=== PATIENT | male | born 1980 | race Two or more races ===

== ENCOUNTER 2021-06-20 11:42 | Inpatient (IN) | payer OTHER ==
[~2021-06-20] VITALS: Ht 175.3 cm; Wt 81.6 kg
[2021-06-20] MEDS ORDERED: ACETAMINOPHEN 325 MG TABLET PO PRN (16:00)
[2021-06-20] MEDS ORDERED: BLOOD SUGAR DIAGNOSTIC 1 EACH STRIP IN ONE (16:00)
[2021-06-20] MEDS ORDERED: ALBUTEROL NEB PRN (16:00)
[2021-06-20] MEDS ORDERED: LORAZEPAM 0.5 MG TABLET PO PRN (16:00)
[2021-06-20] MEDS ORDERED: MAG HYDROX/AL HYDROX/SIMETH 30 ML UDC PO PRN (16:00)
[2021-06-20] MEDS ORDERED: IBUPROFEN 200 MG TABLET PO PRN (16:00)
[2021-06-20] MEDS ORDERED: MAGNESIUM HYDROXIDE 30 ML UDC PO PRN ×2 (16:00)
[2021-06-20] MEDS ORDERED: ZOLPIDEM TARTRATE 10 MG TABLET PO PRN (16:00)
[2021-06-20] MEDS ORDERED: LORAZEPAM 1 MG TABLET FOR AGITATION/ANXIETY PO PRN (16:00)
--- NOTE | 2021-06-20 17:15 | NUR ---
Admitted a 41 years old female. Alert and oriented x3. Admitted for clinical trial @ 1450. Pt. is under the services of Dr. Baumann. Pt. arrived to the unit, ambulatory and escorted by Dr. Baumann's staff. Bed locked. bed on lowest position. bed alarm on. side rails up x2. Pt. denies suicidal and homicidal ideation at this time. Pt is calm and cooperative upon admission. V/S taken. All belongings in possession of patient. Pt. refused to sign the admissions papers co-signed with RN. Pt refused skin assessment. Pt refused face photograph. Pt denies auditory and visual hallucinations. Needs attended and will continue to monitor Q15 minutes for safety, comfort and behavior. Electric shaving kit removed from belongings and locked in pt's locker.
[2021-06-20 17:20] VITALS: BP 137/90
[2021-06-20 19:49] VITALS: BP 124/64
--- NOTE | 2021-06-20 20:46 | NUR ---
GPS RN OPENING NOTES: RECEIVED PATIENT IN BED, AWAKE, A/O X 3, FLAT AFFECT, CALM, PASSIVE, GUARDED, WITHDRAWN. DENIES SI, HI, A/V HALLUCINATIONS. DENIES PAIN AT THIS TIME. NO S/S OF DISTRESS NOTED. RESPIRATION EVEN AND UNLABORED WITH EQUAL RISE AND FALL OF THE CHEST, ON ROOM AIR. PATIENT IS ABLE TO MAKE HIS NEEDS KNOWN. OFFERED FLUID AND SNACKS TOLERATED. BED IN LOW LOCKED POSITION, SIDE RAILS UP X2 FOR SAFETY. WILL CONTINUE TO MONITOR Q15 MIN FOR SAFETY, MOOD AND BEHAVIOR.
[2021-06-21 08:00] VITALS: BP 146/93
[2021-06-21 08:56] LABS: CHOLESTEROL 157 mg/dL (<200); HDL CHOLESTEROL 64 mg/dL (40-60); LDL 81 mg/dL (0-99); TRIGLYCERIDES 55 mg/dL (30-150)
[2021-06-21 09:00] LABS: ALBUMIN 3.6 g/dL (3.4-5.0); BILIRUBIN,TOTAL 0.5 mg/dL (0.2-1.0); CALCIUM, SERUM 8.9 mg/dL (8.5-10.1); CREATININE 1.3 mg/dL (0.6-1.3); POTASSIUM 4.5 mmol/L (3.5-5.1); TOTAL PROTEIN, SERUM 7.3 g/dL (6.4-8.2)
[2021-06-21] MEDS: DEXILANT 60 MG PO SCH (09:00)
[2021-06-21] MEDS ORDERED: OXYBUTYNIN 5 MG PO SCH (09:00)
--- NOTE | 2021-06-21 09:00 | NUR ---
Patient alert ,verbally responsive ,easily irritable and anxious ,isolative and withdrawn ,no interaction with peers ,stay in his room all day ,no plan for self care .will continue to monitor for safety .
--- NOTE | 2021-06-21 13:00 | NUR ---
Patient remains isolative and withdrawn,preoccupied with his own thoughts no plan for self care ,no interaction with peers ,stay in his room all day ,no plan for self care .will continue to monitor for safety .
[2021-06-21 16:00] VITALS: BP 146/77
[2021-06-21] MEDS: MAG HYDROX/AL HYDROX/SIMETH 30 ML UDC PO PRN (19:51)
[2021-06-21] MEDS: ACETAMINOPHEN ES 500 MG TABLET PO PRN (19:56)
[2021-06-21 20:00] VITALS: BP 153/94
--- NOTE | 2021-06-21 20:04 | NUR ---
GPS RN OPENING NOTES: RECEIVED PATIENT IN ROOM, AWAKE, A/O X 3, FLAT AFFECT, ANXIOUS, RESTLESS, COMPLAINING OF HEADACHE AND NAUSEA. TYLENOL 1000MG AND MAALOX 30ML/1CUP GIVEN PO. PATIENT DENIES SI, HI, A/V HALLUCINATIONS AT THIS TIME. DENIES PAIN AT THIS TIME. NO S/S OF DISTRESS NOTED. RESPIRATION EVEN AND UNLABORED WITH EQUAL RISE AND FALL OF THE CHEST, ON ROOM AIR. PATIENT IS ABLE TO MAKE HIS NEEDS KNOWN. OFFERED FLUID AND SNACKS TOLERATED. BED IN LOW LOCKED POSITION, SIDE RAILS UP X2 FOR SAFETY. WILL CONTINUE TO MONITOR Q15 MIN FOR SAFETY, MOOD AND BEHAVIOR.
[2021-06-21] MEDS: ZOLPIDEM TARTRATE 10 MG TABLET PO PRN (21:55)
--- NOTE | 2021-06-21 21:59 | NUR ---
GPS RN NOTES: PATIENT REQUESTED FOR SLEEP MEDICATION. AMBIEN 10MG GIVEN PO AT 2155. WILL CONTINUE TO MONITOR.
--- NOTE | 2021-06-22 06:39 | NUR ---
GPS RN CLOSING NOTES: PATIENT IS CURRENTLY SLEEPING. PATIENT SLEPT 8HR THIS SHIFT. NO BEHAVIORAL ISSUES THIS SHIFT. NO S/S OF DISTRESS. RESPIRATION EVEN AND UNLABORED WITH EQUAL RISE AND FALL OF THE CHEST, ON ROOM AIR. NO C/O PAIN THIS SHIFT. ALL PATIENT CARE NEEDS HAVE BEEN MET ANTICIPATED. WILL ENDORSE TO AM SHIFT.
[2021-06-22 08:00] VITALS: BP 138/96
[2021-06-22] MEDS: DEXILANT 60 MG PO SCH (08:16)
--- NOTE | 2021-06-22 09:49 | NUR ---
RN-CO: PATIENT DENIED PAIN AND DISCOMFORTS AT THIS TIME. HE SAID HE HAS AH TELLING HIM"FUNNY WORDS." HE DENIED FEELING OF PARANOIA AND VH. I WILL CONTINUE TO MONITOR
[2021-06-22 16:00] VITALS: BP 130/85
--- NOTE | 2021-06-22 19:45 | NUR ---
GPS RN OPENING NOTES: RECEIVED PATIENT IN ROOM, AWAKE, A/O X 3, FLAT AFFECT, PASSIVE, WITHDRAWN, ISOLATIVE, NOT INTERACTING WITH PEERS. PATIENT DENIES SI, HI, A/V HALLUCINATIONS AT THIS TIME. DENIES PAIN AT THIS TIME. NO S/S OF DISTRESS NOTED. RESPIRATION EVEN AND UNLABORED WITH EQUAL RISE AND FALL OF THE CHEST, ON ROOM AIR. PATIENT IS ABLE TO MAKE HIS NEEDS KNOWN. OFFERED FLUID AND SNACKS TOLERATED. BED IN LOW LOCKED POSITION, SIDE RAILS UP X2 FOR SAFETY. WILL CONTINUE TO MONITOR Q15 MIN FOR SAFETY, MOOD AND BEHAVIOR.
[2021-06-22 20:36] VITALS: BP 139/95
--- NOTE | 2021-06-23 06:46 | NUR ---
GPS RN CLOSING NOTES: PATIENT IS LAYING IN BED, AWAKE, A/O X3. PATIENT SLEPT 7HR THIS SHIFT. NO BEHAVIORAL ISSUES THIS SHIFT. NO S/S OF DISTRESS. RESPIRATION EVEN AND UNLABORED WITH EQUAL RISE AND FALL OF THE CHEST, ON ROOM AIR. NO C/O PAIN THIS SHIFT. ALL PATIENT CARE NEEDS HAVE BEEN MET ANTICIPATED. WILL CONTINUE TO MONITOR AND ENDORSE TO AM SHIFT.
[2021-06-23 08:00] VITALS: BP 147/98
[2021-06-23] MEDS: DEXILANT 60 MG PO SCH (08:07)
[2021-06-23 16:09] VITALS: BP 131/83
--- NOTE | 2021-06-23 19:30 | NUR ---
GPS RN NOTE, RECEIVED PATIENT AWAKE AND IN BED, NO S/S OR COMPLAINTS OF PAIN AT THIS TIME. PATIENT IS DISPLAYING NO S/S OF APPARENT DISTRESS AT THIS TIME. PATIENT BREATHING IS UNLABORED WITH EQUAL RISE AND FALL OF THE CHEST. PATIENT IS ALERT AND ORIENTED X 3 ON ROOM AIR. PATIENT IS COMPLIANT WITH MEDICATIONS, ANXIOUS, LABILE, PARANOID, POLITE, EASILY IRRITABLE, MAKES NEEDS KNOWN, AND COOPERATIVE. PATIENT DENIES SUICIDAL AND HOMICIDAL IDEATIONS AT THIS TIME. PATIENT ASSISTED WITH TURNING AND REPOSITIONING Q2HR AND PRN FOR COMFORT AND CIRCULATION. PATIENT HAS NO NEEDS AT THIS TIME. PATIENT EDUCATED ON THE USE OF THE CALL LOMBARDI. PATIENT BED SIDE RAILS UP X 2 FOR SAFETY. PATIENT BED IS LOCKED, LOW, WITH BED ALARM ON. WILL CONTINUE TO MONITOR THIS PATIENT Q15 MINUTES WITH THE HELP OF STAFF TO MAINTAIN SAFETY.
[2021-06-24 08:00] VITALS: BP 134/82
[2021-06-24] MEDS: DEXILANT 60 MG PO SCH (08:04)
--- NOTE | 2021-06-24 10:30 | NUR ---
RN Notes: Received pt. awake in bed, responsive to staffs and suspicious. Ate 100% for breakfast, compliant on meds. Pt. isolates in room, encouraged to verbalize feelings and motivated to attend group activity. Needs attended, no distress and no agitation noted. Will continue to monitor for safety.
--- NOTE | 2021-06-24 11:18 | NUR ---
Pt. went to the nurses station and asking permission to go to [facility] for less than [address] Baumann's office and approved to go to [facility] and spoke to
--- NOTE | 2021-06-24 11:36 | NUR ---
Pt. is back form [facility].
[2021-06-24 16:00] VITALS: BP 136/91
[2021-06-24] MEDS: OXYBUTYNIN 5 MG PO PRN ×2 (18:06→19:39)
--- NOTE | 2021-06-24 19:30 | NUR ---
GPS RN NOTE, RECEIVED PATIENT AWAKE AND IN BED, PATIENT HAS A COMPLAINT OF URINARY DISCOMFORT. PATIENT IS TAKING MEDICATION FOR THIS DISCOMFORT. PATIENT IS DISPLAYING NO S/S OF APPARENT DISTRESS AT THIS TIME. PATIENT BREATHING IS UNLABORED WITH EQUAL RISE AND FALL OF THE CHEST. PATIENT IS ALERT AND ORIENTED X 3 ON ROOM AIR WITH A SPO2 97%. PATIENT IS COMPLIANT WITH MEDICATIONS, ANXIOUS, PARANOID, POLITE, EASILY IRRITABLE, MAKES NEEDS KNOWN, AND COOPERATIVE. PATIENT DENIES SUICIDAL AND HOMICIDAL IDEATIONS AT THIS TIME. PATIENT ASSISTED WITH TURNING AND REPOSITIONING Q2HR AND PRN FOR COMFORT AND CIRCULATION. PATIENT HAS NO NEEDS AT THIS TIME. PATIENT EDUCATED ON THE USE OF THE CALL LOMBARDI. PATIENT BED SIDE RAILS UP X 2 FOR SAFETY. PATIENT BED IS LOCKED, LOW, WITH BED ALARM ON. WILL CONTINUE TO MONITOR THIS PATIENT Q15 MINUTES WITH THE HELP OF STAFF TO MAINTAIN SAFETY.
--- NOTE | 2021-06-24 19:39 | NUR ---
GPS RN NOTE, PATIENT HAS A COMPLAINT OF URINARY DISCOMFORT AND IS REQUESTING OXYBUTYNIN AT THIS TIME. PATIENT VITAL SIGNS ARE STABLE. GAVE OXYBUTYNIN 5MG PO DAILY PRN ORDERED. WILL REASSESS PATIENT'S DISCOMFORT AND I WILL CONTINUE TO MONITOR THIS PATIENT WITH THE HELP OF STAFF.
[2021-06-24 20:00] VITALS: BP 149/93
[2021-06-25 08:00] VITALS: BP 145/99
[2021-06-25] MEDS: DEXILANT 60 MG PO SCH (08:10)
--- NOTE | 2021-06-25 09:30 | NUR ---
RN Notes: Received pt. awake in bed, responsive to staffs and suspicious. No distress and no agitation noted. Ate 100% for breakfast, compliant on meds. Pt. isolates in room, encouraged to verbalize feelings and motivated to socialize with peers. Needs attended and will continue to monitor for safety.
[2021-06-25 16:00] VITALS: BP 141/79
--- NOTE | 2021-06-25 19:30 | NUR ---
RN NOTES: PATIENT RESTING IN ROOM, AWAKE, A/O X 3, FLAT AFFECT, PASSIVE, WITHDRAWN, ISOLATIVE, EASILY AGITATED. PATIENT DENIES SI, HI, A/V HALLUCINATIONS AT THIS TIME. NO S/S OF DISTRESS NOTED. PATIENT IS ABLE TO MAKE HIS NEEDS KNOWN. OFFERED FLUID AND SNACKS TOLERATED. WILL CONTINUE TO MONITOR Q15 MIN FOR SAFETY AND BEHAVIOR.
[2021-06-25 19:50] VITALS: BP 131/96
--- NOTE | 2021-06-26 06:37 | NUR ---
RN NOTES: PATIENT IS CURRENTLY SLEEPING. PATIENT SLEPT 8HR THIS SHIFT. NO BEHAVIORAL ISSUES THIS SHIFT NOTED. NO S/S OF DISTRESS. ALL PATIENT CARE NEEDS HAVE BEEN MET ANTICIPATED. WILL ENDORSE TO AM SHIFT.
[2021-06-26] MEDS: DEXILANT 60 MG PO SCH (07:53)
[2021-06-26 08:00] VITALS: BP 139/76
[2021-06-26 16:00] VITALS: BP 134/73
[2021-06-26 19:50] VITALS: BP 154/86
[2021-06-26] MEDS: ZOLPIDEM TARTRATE 10 MG TABLET PO PRN ×2 (20:38→23:13)
[2021-06-27] MEDS: ACETAMINOPHEN ES 500 MG TABLET PO PRN (07:41)
[2021-06-27 08:00] VITALS: BP 137/84
[2021-06-27] MEDS: DEXILANT 60 MG PO SCH (09:24)
--- NOTE | 2021-06-27 10:00 | NUR ---
GPS RN OPENING NOTES: RECEIVED PATIENT IN ROOM, AWAKE, A/O X 3, FLAT AFFECT, PASSIVE, PATIENT STATES" I CANT STOP LAUGHING " PATIENT DENIES SI, HI, A/V HALLUCINATIONS AT THIS TIME. DENIES PAIN AT THIS TIME. NO S/S OF DISTRESS NOTED. RESPIRATION EVEN AND UNLABORED WITH EQUAL RISE AND FALL OF THE CHEST, ON ROOM AIR. PATIENT IS ABLE TO MAKE HIS NEEDS KNOWN. OFFERED FLUID AND SNACKS TOLERATED. BED IN LOW LOCKED POSITION, SIDE RAILS UP X2 FOR SAFETY. WILL CONTINUE TO MONITOR Q15 MIN FOR SAFETY, MOOD AND BEHAVIOR.
[2021-06-27 16:00] VITALS: BP 148/87
--- NOTE | 2021-06-27 16:04 | NUR ---
GPS RN NOTE: T.O. ORDER DR NANCY OROZCO OXYBUTYNIN 5 MG PO ORDER PLACED AND CARED OUT.
--- NOTE | 2021-06-27 19:57 | NUR ---
GPS RN OPENING NOTES: RECEIVED PATIENT IN ROOM, AWAKE, A/O X3, PASSIVE, ISOLATIVE, GUARDED. NOT INTERACTING WITH PEERS. PATIENT C/O OF OVERACTIVE BLADDER. EDUCATION PROVIDED. DENIES SI, HI, A/V HALLUCINATIONS. DENIES PAIN AT THIS TIME. NO S/S OF DISTRESS NOTED. RESPIRATION EVEN AND UNLABORED WITH EQUAL RISE AND FALL OF THE CHEST, ON ROOM AIR. BED IN LOW LOCKED POSITION, SIDE RAILS UP X2 FOR SAFETY. WILL CONTINUE TO MONITOR Q15 MIN FOR SAFETY, MOOD AND BEHAVIOR.
[2021-06-27 20:15] VITALS: BP 140/98
[2021-06-28] MEDS: DEXILANT 60 MG PO SCH (08:34)
--- NOTE | 2021-06-28 09:00 | NUR ---
Patient alert ,verbally responsive ,poor insight ,poor judgment ,flat affect ,labile ,stay in his room all day no interaction with peers ,encourage patient to verbalize feelings and thoughts ,redirect as needed encourage patient to attend groups and interact with peers, redirect as needed .
--- NOTE | 2021-06-28 19:40 | NUR ---
GPS RN OPENING NOTES: RECEIVED PATIENT IN ROOM, AWAKE, A/O X3, PASSIVE, ISOLATIVE, GUARDED, POOR INSIGHT. NOT INTERACTING WITH PEERS. ENCOURAGED TO VERBALIZE FEELINGS. DENIES SI, HI, A/V HALLUCINATIONS. DENIES PAIN AT THIS TIME. NO S/S OF DISTRESS NOTED. RESPIRATION EVEN AND UNLABORED WITH EQUAL RISE AND FALL OF THE CHEST, ON ROOM AIR. BED IN LOW LOCKED POSITION, SIDE RAILS UP X2 FOR SAFETY. WILL CONTINUE TO MONITOR Q15 MIN FOR SAFETY, MOOD AND BEHAVIOR.
[2021-06-28 20:00] VITALS: BP 124/85
--- NOTE | 2021-06-29 06:39 | NUR ---
GPS RN CLOSING NOTES: PATIENT IS CURRENTLY SLEEPING. PATIENT SLEPT 8HR THIS SHIFT. NO BEHAVIORAL ISSUES THIS SHIFT. NO S/S OF DISTRESS. RESPIRATION EVEN AND UNLABORED WITH EQUAL RISE AND FALL OF THE CHEST, ON ROOM AIR. NO C/O PAIN THIS SHIFT. ALL PATIENT CARE NEEDS HAVE BEEN MET ANTICIPATED. WILL CONTINUE TO MONITOR AND ENDORSE TO AM SHIFT.
[2021-06-29] MEDS: DEXILANT 60 MG PO SCH (08:20)
--- NOTE | 2021-06-29 09:11 | NUR ---
RN-CO: PATIENT IS CALM AND COOPERATIVE TO CARE. HE DENIES PAIN AND DISCOMFORTS. HE STATED HE HAS ON AND OFF AUDITORY HALLUCINATIONS TELLING HIM "FUNNY THINGS." HE WAS PICKED UP BY DR CRUZ'S NURSE AT THIS TIME.
--- NOTE | 2021-06-29 19:41 | NUR ---
RN NOTES: PATIENT RESTING IN HIS ROOM, AWAKE, A/O X3, ISOLATIVE, GUARDED, POOR INSIGHT. ENCOURAGED TO VERBALIZE FEELINGS. DENIES SI, HI, A/V HALLUCINATIONS. NO S/S OF DISTRESS NOTED. WILL CONTINUE TO MONITOR Q15 MIN FOR SAFETY AND BEHAVIOR.
[2021-06-29 20:00] VITALS: BP 124/84
[2021-06-30 08:00] VITALS: BP 139/89
[2021-06-30] MEDS: DEXILANT 60 MG PO SCH (08:01)
--- NOTE | 2021-06-30 09:07 | NUR ---
RN-CO: RECEIVED PT AWAKE, LISTENING TO MUSIC. HE ATE IS MEAL AND TOOK HIS MEDICATIONS. HE DENIED ANY ADVERSE REACTIONS FROM THE INVESTIGATIONAL MEDICATIONS.HE STILL HAS AUDITORY HALLUCINATIONS. PT IS CALM AND COOPERATIVE TO CARE.
[2021-06-30] MEDS: INVEST MED Kar XT OR PLACEBO 50/20 MG PO SCH ×2 (09:50→21:11)
[2021-06-30] MEDS ORDERED: LORAZEPAM 1 MG TABLET FOR AGITATION/ANXIETY PO PRN (13:00)
[2021-06-30 16:00] VITALS: BP 137/92
--- NOTE | 2021-06-30 19:30 | NUR ---
GPS RN NOTE, RECEIVED PATIENT AWAKE AND IN BED, NO S/S OR COMPLAINTS OF PAIN AT THIS TIME. PATIENT IS TAKING MEDICATION FOR THIS DISCOMFORT. PATIENT IS DISPLAYING NO S/S OF APPARENT DISTRESS AT THIS TIME. PATIENT BREATHING IS UNLABORED WITH EQUAL RISE AND FALL OF THE CHEST. PATIENT IS ALERT AND ORIENTED X 3 ON ROOM AIR WITH A SPO2 99%. PATIENT IS COMPLIANT WITH MEDICATIONS, ANXIOUS, PARANOID, POLITE, EASILY IRRITABLE, MAKES NEEDS KNOWN, AND COOPERATIVE. PATIENT DENIES SUICIDAL AND HOMICIDAL IDEATIONS AT THIS TIME. PATIENT ASSISTED WITH TURNING AND REPOSITIONING Q2HR AND PRN FOR COMFORT AND CIRCULATION. PATIENT HAS NO NEEDS AT THIS TIME. PATIENT EDUCATED ON THE USE OF THE CALL LOMBARDI. PATIENT BED SIDE RAILS UP X 2 FOR SAFETY. PATIENT BED IS LOCKED, LOW, WITH BED ALARM ON. WILL CONTINUE TO MONITOR THIS PATIENT Q15 MINUTES WITH THE HELP OF STAFF TO MAINTAIN SAFETY.
[2021-06-30 20:00] VITALS: BP 132/84
[2021-07-01 08:00] VITALS: BP 148/86
[2021-07-01] MEDS: DEXILANT 60 MG PO SCH (08:09)
[2021-07-01] MEDS: INVEST MED Kar XT OR PLACEBO 50/20 MG PO SCH ×2 (09:58→21:46)
--- NOTE | 2021-07-01 10:30 | NUR ---
RN Notes: Received pt. awake in bed, responsive to staffs, no distress and no agitation noed. Ate 100% for breakfast, compliant on med. Encouraged to verbalize feelings and motivated to attend group activity. Needs attended and will continue to monitor for safety.
[2021-07-01 16:00] VITALS: BP 134/76
[2021-07-01 21:10] VITALS: BP 130/78
[2021-07-01] MEDS: ZOLPIDEM TARTRATE 10 MG TABLET PO PRN (21:45)
--- NOTE | 2021-07-01 21:46 | NUR ---
GPS RN NOTE, PATIENT HAS A COMPLAINT OF NOT BEING ABLE TO SLEEP AND IS REQUESTING AMBIEN AT THIS TIME. PATIENT VITAL SIGNS ARE STABLE. GAVE AMBIEN 10MG PO HS PRN ORDERED. WILL REASSESS FOR INSOMNIA AND I WILL CONTINUE TO MONITOR THIS PATIENT WITH THE HELP OF STAFF.
[2021-07-02] MEDS: DEXILANT 60 MG PO SCH (07:46)
[2021-07-02] MEDS: INVEST MED Kar XT OR PLACEBO 50/20 MG PO SCH ×2 (10:02→21:39)
--- NOTE | 2021-07-02 19:30 | NUR ---
GPS RN NOTE, RECEIVED PATIENT AWAKE AND IN BED, NO S/S OR COMPLAINTS OF PAIN AT THIS TIME. PATIENT IS TAKING MEDICATION FOR THIS DISCOMFORT. PATIENT IS DISPLAYING NO S/S OF APPARENT DISTRESS AT THIS TIME. PATIENT BREATHING IS UNLABORED WITH EQUAL RISE AND FALL OF THE CHEST. PATIENT IS ALERT AND ORIENTED X 3 ON ROOM AIR WITH A SPO2 99%. PATIENT IS COMPLIANT WITH MEDICATIONS, ANXIOUS, PARANOID, POLITE, EASILY IRRITABLE, MAKES NEEDS KNOWN, AND COOPERATIVE. PATIENT STATES, " I HEAR VOICES AT TIMES BUT IT'S MOSTLY COMEDIC LAUGHTER AND I TRY TO BLOCK IT OUT ". PATIENT DENIES SUICIDAL AND HOMICIDAL IDEATIONS AT THIS TIME. PATIENT ASSISTED WITH TURNING AND REPOSITIONING Q2HR AND PRN FOR COMFORT AND CIRCULATION. PATIENT HAS NO NEEDS AT THIS TIME. PATIENT EDUCATED ON THE USE OF THE CALL LOMBARDI. PATIENT BED SIDE RAILS UP X 2 FOR SAFETY. PATIENT BED IS LOCKED, LOW, WITH BED ALARM ON. WILL CONTINUE TO MONITOR THIS PATIENT Q15 MINUTES WITH THE HELP OF STAFF TO MAINTAIN SAFETY.
[2021-07-02 20:00] VITALS: BP 146/104
[2021-07-02] MEDS: ZOLPIDEM TARTRATE 10 MG TABLET PO PRN (21:40)
[2021-07-03 08:00] VITALS: BP 129/82
[2021-07-03] MEDS: DEXILANT 60 MG PO SCH (08:31)
[2021-07-03] MEDS: INVEST MED Kar XT OR PLACEBO 50/20 MG PO SCH ×2 (10:31→21:19)
[2021-07-03 16:00] VITALS: BP 130/79
[2021-07-03 20:13] VITALS: BP 142/93
[2021-07-04 08:00] VITALS: BP 147/88
--- NOTE | 2021-07-04 09:00 | NUR ---
Patient alert ,verbally responsive, responding to internal stimuli ,stated hearing voices of someone make him laugh ,easily irritable and anxious isolative and withdrawn ,no interaction with peers ,stay in his room all day ,no plan for self care .will continue to monitor for safety .
[2021-07-04] MEDS: INVEST MED Kar XT OR PLACEBO 50/20 MG PO SCH ×2 (09:25→21:31)
[2021-07-04] MEDS: DEXILANT 60 MG PO SCH (09:25)
[2021-07-04 16:00] VITALS: BP 147/96
--- NOTE | 2021-07-04 19:51 | NUR ---
GPS RN OPENING NOTES: RECEIVED PATIENT IN ROOM SLEEPING, EASILY AROUSABLE, PASSIVE, ISOLATIVE, GUARDED. PATIENT ENCOURAGED TO VERBALIZE FEELINGS, AND ADMITS TO AUDITORY HALLUCINATIONS, "FUNNY VOICES NOTHING BAD". DENIES SI, HI AT THIS TIME. DENIES PAIN AT THIS TIME. NO S/S OF DISTRESS NOTED. RESPIRATION EVEN AND UNLABORED WITH EQUAL RISE AND FALL OF THE CHEST, ON ROOM AIR. BED IN LOW LOCKED POSITION, SIDE RAILS UP X2 FOR SAFETY. WILL CONTINUE TO MONITOR Q15 MIN FOR SAFETY, MOOD AND BEHAVIOR.
[2021-07-04 20:19] VITALS: BP 156/95
--- NOTE | 2021-07-05 06:51 | NUR ---
GPS RN CLOSING NOTES: PATIENT IS CURRENTLY SLEEPING. PATIENT SLEPT 8HR THIS SHIFT. NO C/O PAIN THIS SHIFT. NO BEHAVIORAL ISSUES THIS SHIFT. NO S/S OF DISTRESS. RESPIRATION EVEN AND UNLABORED WITH EQUAL RISE AND FALL OF THE CHEST, ON ROOM AIR. ALL PATIENT CARE NEEDS HAVE BEEN MET ANTICIPATED. WILL CONTINUE TO MONITOR AND ENDORSE TO AM SHIFT.
--- NOTE | 2021-07-05 09:00 | NUR ---
Patient alert ,verbally responsive, responding to internal stimuli,patient hearing voices ,easily irritable and anxious isolative and withdrawn ,no interaction with peers ,stay in his room all day ,no plan for self care will continue to monitor for safety .
[2021-07-05] MEDS: DEXILANT 60 MG PO SCH (09:10)
[2021-07-05] MEDS: INVEST MED Kar XT OR PLACEBO 50/20 MG PO SCH ×2 (09:14→21:59)
--- NOTE | 2021-07-05 13:00 | NUR ---
Patient remains isolative and withdrawn .Patient labile.Patient stay in his room all day .Continue to monitor for safety q15 minutes Encourage patient to verbalize feelings and thoughts redirect as needed.
--- NOTE | 2021-07-05 19:30 | NUR ---
RN NOTES: PATIENT RESTING IN HIS ROOM, AWAKE, A/O X3, ISOLATIVE, GUARDED, POOR INSIGHT. ENCOURAGED TO VERBALIZE FEELINGS. DENIES SI, HI, A/V HALLUCINATIONS AT THIS TIME. NO S/S OF DISTRESS NOTED. WILL CONTINUE TO MONITOR Q15 MIN FOR SAFETY AND BEHAVIOR.
[2021-07-05 20:17] VITALS: BP 149/91
[2021-07-05 22:00] VITALS: BP 125/80
[2021-07-06 08:00] VITALS: BP 155/93
[2021-07-06] MEDS: DEXILANT 60 MG PO SCH (08:16)
[2021-07-06] MEDS: INVEST MED Kar XT OR PLACEBO 50/20 MG PO SCH ×2 (10:05→21:22)
--- NOTE | 2021-07-06 14:18 | NUR ---
RN-CO:.PATIENT DENIES ADVERSE REACTIONS FROM THE IP. BUT STATED " I STILL HAVE AUDITORY AND VISUAL HALLUCINATIONS AND MILD PARANOIA. HE ALSO DENIED SIDE EFFECTS. HE IS COOPERATIVE TO CARE BUT ISOLATIVE AND WITHDRAWN. HE PREFERS TO LISTEN TO MUSIC AND TALK TO HIS FRIENDS ON THE PHONE.
[2021-07-06 16:00] VITALS: BP 140/98
--- NOTE | 2021-07-06 19:30 | NUR ---
GPS RN NOTE, RECEIVED PATIENT AWAKE AND IN BED, PATIENT HAS A COMPLAINT OF MIDDLE BACK AT 3 OUT OF 10 ON THE PAIN SCALE. PATIENT IS TAKING ORAL PAIN MEDICATION FOR THIS PAIN. PATIENT IS DISPLAYING NO S/S OF APPARENT DISTRESS AT THIS TIME. PATIENT BREATHING IS UNLABORED WITH EQUAL RISE AND FALL OF THE CHEST. PATIENT IS ALERT AND ORIENTED X 3 ON ROOM AIR WITH A SPO2 99%. PATIENT IS COMPLIANT WITH MEDICATIONS, ANXIOUS, PARANOID, POLITE, EASILY IRRITABLE, MAKES NEEDS KNOWN, AND COOPERATIVE. PATIENT DENIES SUICIDAL AND HOMICIDAL IDEATIONS AT THIS TIME. PATIENT ASSISTED WITH TURNING AND REPOSITIONING Q2HR AND PRN FOR COMFORT AND CIRCULATION. PATIENT HAS NO NEEDS AT THIS TIME. PATIENT EDUCATED ON THE USE OF THE CALL LOMBARDI. PATIENT BED SIDE RAILS UP X 2 FOR SAFETY. PATIENT BED IS LOCKED, LOW, WITH BED ALARM ON. WILL CONTINUE TO MONITOR THIS PATIENT Q15 MINUTES WITH THE HELP OF STAFF TO MAINTAIN SAFETY.
[2021-07-06 20:00] VITALS: BP 138/62
[2021-07-06] MEDS: ACETAMINOPHEN ES 500 MG TABLET PO PRN (20:03)
--- NOTE | 2021-07-06 20:03 | NUR ---
GPS RN NOTE, PATIENT HAS A COMPLAINT OF UPPER BACK PAIN AT 3 OUT OF 10 ON THE PAIN SCALE AND IS REQUESTING TYLENOL ES AT THIS TIME. PATIENT VITAL SIGNS ARE STABLE. GAVE TYLENOL 1,000 MG PO Q8HR PRN ORDERED. WILL REASSESS PAIN AND I WILL CONTINUE TO MONITOR THIS PATIENT WITH THE HELP OF STAFF.
[2021-07-07 08:00] VITALS: BP 125/78
[2021-07-07] MEDS: DEXILANT 60 MG PO SCH (08:14)
--- NOTE | 2021-07-07 09:58 | NUR ---
RN Notes: Received pt. awake in bed, responsive to staffs and suspicious. Ate 100% for breakfast, compliant on meds. Encouraged to verbalize feelings and motivated to attend group activity. Needs attended and will continue to monitor for safety.
[2021-07-07] MEDS: INVEST MED Kar XT OR PLACEBO 50/20 MG PO SCH ×2 (10:02→21:19)
--- NOTE | 2021-07-07 10:06 | NUR ---
Pt.went to the doctor's office and escorted by 's staff.Pt. without distress and ambulatory.
[2021-07-07 16:00] VITALS: BP 132/95
[2021-07-07 20:00] VITALS: BP 129/92
[2021-07-08 08:00] VITALS: BP 134/85
[2021-07-08] MEDS: DEXILANT 60 MG PO SCH (08:04)
--- NOTE | 2021-07-08 09:30 | NUR ---
RN Notes: Received pt. awake in bed, responsive to staffs and suspicious. Ate 100% for breakfast, compliant on meds. Pt. isolates in room, no social interactions. Encouraged to verbalize feelings and motivated to attend group activity. Needs attended and will continue to monitor for safety.
[2021-07-08] MEDS: INVEST MED Kar XT OR PLACEBO 50/20 MG PO SCH ×2 (10:01→21:20)
[2021-07-08 16:00] VITALS: BP 145/93
--- NOTE | 2021-07-08 19:25 | NUR ---
GPS RN NOTES RECEIVED PATIENT IN HIS ROOM AWAKE, ALERT AND ORIENTED X3, PATIENT IS LISTENING TO MUSIC. NO ACUTE DISTRESS NO SOB NOTED. PATIENT REMAINS ISOLATIVE AND WITHDRAWN. ENCOURAGED PATIENT TO ATTEND IN GROUP ACTIVITIES. PATIENT VERBALIZED UNDERSTANDING. PATIENT DENIES ADVERSE REACTIONS FROM THE INVESTIGATIONAL MEDICATION. HOWEVER PATIENT STATED "I STILL HAVE ON AND OFF AUDITORY HALLUCINATIONS TELLING HIM "FUNNY THINGS". DENIES SI/HI AT THIS TIME. SAFETY PRECAUTIONS MAINTAINED. WILL CONTINUE TO MONITOR Q15MIN ROUNDS FOR SAFETY AND BEHAVIOR.
[2021-07-08 19:51] VITALS: BP 137/91
[2021-07-08] MEDS: MAG HYDROX/AL HYDROX/SIMETH 30 ML UDC PO PRN (20:39)
[2021-07-09 08:00] VITALS: BP 142/91
[2021-07-09] MEDS: DEXILANT 60 MG PO SCH (08:25)
[2021-07-09] MEDS: INVEST MED Kar XT OR PLACEBO 50/20 MG PO SCH ×2 (09:59→21:07)
[2021-07-09 16:00] VITALS: BP 144/93
--- NOTE | 2021-07-09 19:26 | NUR ---
GPS RN NOTES RECEIVED PATIENT IN HIS ROOM AWAKE, ALERT AND ORIENTED X3, PATIENT IS LISTENING TO MUSIC. NO ACUTE DISTRESS NO SOB NOTED. PATIENT REMAINS ISOLATIVE AND WITHDRAWN. PATIENT DENIES ADVERSE REACTIONS FROM THE INVESTIGATIONAL MEDICATION. HOWEVER PATIENT STATED "I STILL HAVE ON AND OFF AUDITORY HALLUCINATIONS TELLING HIM "FUNNY WORDS". DENIES SI/HI AT THIS TIME. SAFETY PRECAUTIONS MAINTAINED. WILL CONTINUE TO MONITOR Q15MIN ROUNDS FOR SAFETY AND BEHAVIOR.
[2021-07-09 19:57] VITALS: BP 145/91
[2021-07-10 08:00] VITALS: BP 139/96
[2021-07-10] MEDS: DEXILANT 60 MG PO SCH (08:30)
[2021-07-10] MEDS: INVEST MED Kar XT OR PLACEBO 50/20 MG PO SCH ×2 (09:57→21:19)
[2021-07-10 16:00] VITALS: BP 131/90
--- NOTE | 2021-07-10 19:26 | NUR ---
GPS RN NOTES RECEIVED PATIENT IN HIS ROOM AWAKE, ALERT AND ORIENTED X3, PATIENT IS LISTENING TO MUSIC. NO ACUTE DISTRESS NO SOB NOTED. PATIENT REMAINS ISOLATIVE AND WITHDRAWN. PATIENT DENIES ADVERSE REACTIONS FROM THE INVESTIGATIONAL MEDICATION. PATIENT STILL HEARING VOICES. PT STATED, "VOICES ARE TELLING HIM TO STOP THINKING, AND VOICES ARE TELLING HIM TO TELL JOKES". PATIENT HAVING VISUAL HALLUCINATION PATIENT STATED, "I AM SEEING STRANGERS LIVE THEIR LIVES IN [place] IN MY HEAD". DENIES SI/HI AT THIS TIME. SAFETY PRECAUTIONS MAINTAINED. WILL CONTINUE TO MONITOR Q15MIN ROUNDS FOR SAFETY AND BEHAVIOR.
[2021-07-10 19:58] VITALS: BP 140/99
--- NOTE | 2021-07-11 09:00 | NUR ---
Patient alert ,disorganized thoughts ,poor insight ,poor judgment isolative and withdrawn, ,hearing voices ,laughing inappropriately to himself responding to internal stimuli. Refused to attend groups Continue to monitor for safety q15 minutes encourage patient to verbalize feelings and thoughts .
[2021-07-11] MEDS: DEXILANT 60 MG PO SCH (09:12)
[2021-07-11] MEDS: INVEST MED Kar XT OR PLACEBO 50/20 MG PO SCH ×2 (09:12→21:04)
--- NOTE | 2021-07-11 13:00 | NUR ---
Patient remains isolative and withdrawn .Patient stay in his room all day labile ,easily irritable and anxious .Encourage patient to verbalize feelings and thoughts ,redirect as needed.
[2021-07-11 19:47] VITALS: BP 158/91
--- NOTE | 2021-07-12 09:00 | NUR ---
Patient alert ,verbally responsive ,poor insight ,poor judgment ,isolative and withdrawn, no interaction with peers .Patient c/o hearing different things . Refused to attend groups. Continue to monitor for safety q15 minutes encourage patient to verbalize feelings and thoughts redirect as needed.
[2021-07-12] MEDS: INVEST MED Kar XT OR PLACEBO 50/20 MG PO SCH ×3 (09:01→22:09)
[2021-07-12] MEDS: DEXILANT 60 MG PO SCH (09:02)
--- NOTE | 2021-07-12 13:00 | NUR ---
Patient remains isolative and withdrawn ,flat affect ,preoccupied with his own thoughts ,laughing and talking to himself Patient stay in his room all day Continue to monitor for safety q15 minutes .Encourage patient to verbalize feelings and thoughts redirect as needed.
[2021-07-12 20:00] VITALS: BP 143/88
[2021-07-13 08:00] VITALS: BP 113/67
[2021-07-13] MEDS: DEXILANT 60 MG PO SCH (08:05)
[2021-07-13] MEDS: INVEST MED Kar XT OR PLACEBO 50/20 MG PO SCH ×2 (10:40→21:47)
[2021-07-13 16:00] VITALS: BP 139/95
--- NOTE | 2021-07-13 17:32 | NUR ---
RN-CO: Today he was picked up by Dr Baumann's staff to be examined by . He came back around 1100 am.
--- NOTE | 2021-07-13 17:36 | NUR ---
RN-CO: Patient remains cooperative to care. Denied adverse reaction from the investigational medicine. He is isolative and withdrawn, mostly he listens to music inside his room. He said that he still has AH/VH but it doesn't bother him. We will continue to monitor.
[2021-07-13 20:00] VITALS: BP 134/90
[2021-07-14 08:00] VITALS: BP 149/88
[2021-07-14] MEDS: DEXILANT 60 MG PO SCH (08:50)
--- NOTE | 2021-07-14 09:23 | NUR ---
RN Notes: Received pt. awake in bed, responsive to staffs, no distress and no agitation noted. Ate 100% for breakfast, compliant on meds. Encouraged to verbalize feelings and motivated to attend group activity. Needs attended and will continue to monitor for safety.
[2021-07-14] MEDS: INVEST MED Kar XT OR PLACEBO 50/20 MG PO SCH ×2 (10:07→21:30)
[2021-07-14] MEDS ORDERED: LORAZEPAM 1 MG TABLET FOR AGITATION/ANXIETY PO PRN (13:00)
[2021-07-14 16:00] VITALS: BP 136/93
[2021-07-14 20:00] VITALS: BP 151/97
[2021-07-15 08:00] VITALS: BP 139/91
[2021-07-15] MEDS: DEXILANT 60 MG PO SCH (09:00)
[2021-07-15] MEDS: INVEST MED Kar XT OR PLACEBO 50/20 MG PO SCH ×2 (10:03→21:33)
--- NOTE | 2021-07-15 10:15 | NUR ---
RN Notes: Received pt. awake in bed, responsive to staffs, no distress and no agitation noted. Ate 100% for breakfast, Dexilant not available per staff from the office of Dr. Baumann they will get it from the Pharmacy today. Needs attended and will continue to monitor for safety.
[2021-07-15 16:00] VITALS: BP 134/95
--- NOTE | 2021-07-15 19:35 | NUR ---
GPS RN OPENING NOTE RECEIVED PATIENT IN HIS ROOM AWAKE, ALERT AND ORIENTED X3, PT IS LISTENING TO MUSIC USING HIS HEADPHONES. NO ACUTE DISTRESS NO SOB NOTED. PATIENT REMAINS ISOLATIVE AND WITHDRAWN. PATIENT DENIES ADVERSE REACTIONS FROM THE INVESTIGATIONAL MEDICATION. PATIENT STILL HEARING VOICES. PT STATED, "VOICES ARE TELLING HIM TO STOP THINKING, DENIES SI/HI AT THIS TIME. SAFETY PRECAUTIONS MAINTAINED. ALL NEEDS MET AT THIS TIME. WILL CONTINUE TO MONITOR Q15MIN ROUNDS FOR SAFETY AND BEHAVIOR.
[2021-07-15 19:55] VITALS: BP 125/86
[2021-07-15 20:03] VITALS: BP 125/86
[2021-07-16 08:00] VITALS: BP 144/83
[2021-07-16] MEDS: DEXILANT 60 MG PO SCH (08:00)
[2021-07-16] MEDS: INVEST MED Kar XT OR PLACEBO 50/20 MG PO SCH ×2 (10:00→22:06)
[2021-07-16 16:00] VITALS: BP 152/88
[2021-07-17 08:00] VITALS: BP 146/93
[2021-07-17] MEDS: DEXILANT 60 MG PO SCH (09:26)
[2021-07-17] MEDS: INVEST MED Kar XT OR PLACEBO 50/20 MG PO SCH ×2 (10:00→21:27)
[2021-07-17 16:00] VITALS: BP 134/97
[2021-07-17 20:19] VITALS: BP 127/90
[2021-07-18] MEDS: DEXILANT 60 MG PO SCH (09:08)
[2021-07-18] MEDS: INVEST MED Kar XT OR PLACEBO 50/20 MG PO SCH ×2 (09:08→22:02)
--- NOTE | 2021-07-18 19:30 | NUR ---
GPS RN OPENING NOTE: RECEIVED PATIENT IN HIS ROOM AWAKE, ALERT AND ORIENTED X3, CALM, COOPERATIVE. NO ACUTE DISTRESS NO SOB NOTED. PATIENT REMAINS ISOLATIVE AND WITHDRAWN. PATIENT DENIES ADVERSE REACTIONS FROM THE INVESTIGATIONAL MEDICATION. PATIENT VERBALIZES HEARING VOICES. DENIES SI/HI AT THIS TIME. AMBULATORY/STEADY. SAFETY PRECAUTIONS MAINTAINED. WILL CONTINUE TO MONITOR Q15MIN ROUNDS FOR SAFETY AND BEHAVIOR.
[2021-07-18 20:00] VITALS: BP 139/85
[2021-07-19] MEDS: DEXILANT 60 MG PO SCH (08:53)
--- NOTE | 2021-07-19 09:00 | NUR ---
Patient alert,verbally responsive ,disorganized thoughts ,pt hearing voices .Refused to attend groups, Continue to monitor for safety q15 minutes encourage patient to verbalize feelings and thoughts redirect as needed.
[2021-07-19] MEDS: INVEST MED Kar XT OR PLACEBO 50/20 MG PO SCH ×2 (09:19→22:02)
--- NOTE | 2021-07-19 13:00 | NUR ---
Patient isolative and withdrawn .Flat affect, disorganized thoughts.Continue to monitor for safety q15 minutes .Encourage patient to verbalize feelings and thoughts ,redirect as needed.
--- NOTE | 2021-07-19 18:11 | NUR ---
late entry for 07/18/21 0900 Patient alert,verbally responsive ,disorganized thoughts ,isolative and withdrawn, patient med compliant ,stay in his room , pt hearing voices talking to him things . Continue to monitor for Safety q15 minutes encourage patient to verbalize feelings and thoughts ,redirect as needed.
--- NOTE | 2021-07-19 18:13 | NUR ---
late entry for 07/18/21 1300 Patient isolative and withdrawn .Flat affect, disorganized thoughts.Continue to monitor for safety q15 minutes .Encourage patient to verbalize feelings and thoughts ,redirect as needed.
[2021-07-19 20:00] VITALS: BP 119/91
--- NOTE | 2021-07-19 20:42 | NUR ---
GPS RN OPENING NOTES: RECEIVED PATIENT IN BED AWAKE, A/O X3, ANXIOUS, PASSIVE, WITHDRAWN, ISOLATIVE, COOPERATIVE. PATIENT CONTINUES TO ADMITS TO AUDITORY/VISUAL HALLUCINATIONS. EDUCATION PROVIDED AND PATIENT REORIENTED TO PRESENT SITUATION. PATIENT DENIES SI, HI AND PAIN AT THIS TIME. NO S/S OF DISTRESS NOTED. RESPIRATION EVEN AND UNLABORED WITH EQUAL RISE AND FALL OF THE CHEST, ON ROOM AIR. OFFERED FLUID AND SNACKS TOLERATED. BED IN LOW LOCKED POSITION, SIDE RAILS UP X2 FOR SAFETY. WILL CONTINUE TO MONITOR Q15 MIN FOR SAFETY, MOOD AND BEHAVIOR.
--- NOTE | 2021-07-20 07:00 | NUR ---
GPS RN CLOSING NOTES: PATIENT IS CURRENTLY SLEEPING COMFORTABLY IN BED. PATIENT SLEPT 8HR THIS SHIFT. NO C/O PAIN THIS SHIFT. NO BEHAVIORAL ISSUES THIS SHIFT. NO PRN'S THIS SHIFT. NO S/S OF DISTRESS. RESPIRATION EVEN AND UNLABORED WITH EQUAL RISE AND FALL OF THE CHEST, ON ROOM AIR. ALL PATIENT CARE NEEDS HAVE BEEN MET ANTICIPATED. WILL CONTINUE TO MONITOR AND ENDORSE TO AM SHIFT.
[2021-07-20 08:00] VITALS: BP 153/96
[2021-07-20] MEDS: DEXILANT 60 MG PO SCH (08:42)
--- NOTE | 2021-07-20 09:15 | NUR ---
RN-CO: PT WENT TO DR CRUZ'S OFFICE.
--- NOTE | 2021-07-20 09:40 | NUR ---
RN-CO: PT IS COOPERATIVE TO CARE, MOTIVATED TO SELFCARE. HE STATED THAT HE STILL HAS AH/VH BUT DENIED COMMAND HALLUCINATION. HIS AFFECT IS APPROPRIATE. HE DENIED PAIN AND DISCOMFORTS. I WILL CONTINUE TO MONITOR.
[2021-07-20] MEDS: INVEST MED Kar XT OR PLACEBO 50/20 MG PO SCH ×3 (10:04→20:38)
--- NOTE | 2021-07-20 11:13 | NUR ---
OTTOCO: PT IS BACK FROM DR CRUZ'S OFFICCE.
[2021-07-20] MEDS: ACETAMINOPHEN ES 500 MG TABLET PO PRN (12:23)
--- NOTE | 2021-07-20 12:27 | NUR ---
RN-CO: PT WILL GO PAY HIS RENT ANYTIME NOW IN [place]. HE STATED , " DR CRUZ'S OFFICE WAS INFORMED BY HIM.
[2021-07-20 16:00] VITALS: BP 148/95
--- NOTE | 2021-07-20 17:00 | NUR ---
RN-CO: PT IS BACK IN THE UNIT AT 1700.
[2021-07-20 20:00] VITALS: BP 145/93
[2021-07-21 08:00] VITALS: BP 139/89
[2021-07-21] MEDS: DEXILANT 60 MG PO SCH (08:01)
[2021-07-21] MEDS: INVEST MED Kar XT OR PLACEBO 50/20 MG PO SCH ×2 (09:53→21:58)
[2021-07-21 16:00] VITALS: BP 137/76
--- NOTE | 2021-07-21 19:30 | NUR ---
GPS RN NOTE, RECEIVED PATIENT AWAKE AND IN BED, NO S/S OR COMPLAINTS OF PAIN AT THIS TIME. PATIENT IS TAKING MEDICATION FOR THIS DISCOMFORT. PATIENT IS DISPLAYING NO S/S OF APPARENT DISTRESS AT THIS TIME. PATIENT BREATHING IS UNLABORED WITH EQUAL RISE AND FALL OF THE CHEST. PATIENT IS ALERT AND ORIENTED X 3 ON ROOM AIR WITH A SPO2 95%. PATIENT IS COMPLIANT WITH MEDICATIONS, ANXIOUS, PARANOID, POLITE, EASILY IRRITABLE, MAKES NEEDS KNOWN, AND COOPERATIVE. PATIENT DENIES SUICIDAL AND HOMICIDAL IDEATIONS AT THIS TIME. PATIENT ASSISTED WITH TURNING AND REPOSITIONING Q2HR AND PRN FOR COMFORT AND CIRCULATION. PATIENT HAS NO NEEDS AT THIS TIME. PATIENT EDUCATED ON THE USE OF THE CALL LOMBARDI. PATIENT BED SIDE RAILS UP X 2 FOR SAFETY. PATIENT BED IS LOCKED, LOW, WITH BED ALARM ON. WILL CONTINUE TO MONITOR THIS PATIENT Q15 MINUTES WITH THE HELP OF STAFF TO MAINTAIN SAFETY.
[2021-07-21 20:00] VITALS: BP 133/93
[2021-07-21] MEDS: ZOLPIDEM TARTRATE 10 MG TABLET PO PRN (21:59)
[2021-07-22 08:00] VITALS: BP 143/93
[2021-07-22] MEDS: DEXILANT 60 MG PO SCH (08:46)
[2021-07-22] MEDS: INVEST MED Kar XT OR PLACEBO 50/20 MG PO SCH ×2 (09:55→21:58)
--- NOTE | 2021-07-22 10:30 | NUR ---
RN Notes: Received pt. awake in bed, no distress and no agitation noted. Ate 100% for breakfast, compliant on meds. Pt. went for smoking. Encouraged to verbalize feelings, motivated to attend group activity and encouraged to take shower. Needs attended and will continue to monitor for safety.
[2021-07-22 16:00] VITALS: BP 127/66
--- NOTE | 2021-07-22 19:30 | NUR ---
GPS RN NOTE, RECEIVED PATIENT AWAKE AND IN BED, NO S/S OR COMPLAINTS OF PAIN AT THIS TIME. PATIENT IS TAKING MEDICATION FOR THIS DISCOMFORT. PATIENT IS DISPLAYING NO S/S OF APPARENT DISTRESS AT THIS TIME. PATIENT BREATHING IS UNLABORED WITH EQUAL RISE AND FALL OF THE CHEST. PATIENT IS ALERT AND ORIENTED X 3 ON ROOM AIR WITH A SPO2 99%. PATIENT IS COMPLIANT WITH MEDICATIONS, ANXIOUS, PARANOID, POLITE, EASILY IRRITABLE, MAKES NEEDS KNOWN, AND COOPERATIVE. PATIENT WOULD LIKE A ROOM CHANGE WHEN AVAILABLE. PATIENT DENIES SUICIDAL AND HOMICIDAL IDEATIONS AT THIS TIME. PATIENT ASSISTED WITH TURNING AND REPOSITIONING Q2HR AND PRN FOR COMFORT AND CIRCULATION. PATIENT HAS NO NEEDS AT THIS TIME. PATIENT EDUCATED ON THE USE OF THE CALL LOMBARDI. PATIENT BED SIDE RAILS UP X 2 FOR SAFETY. PATIENT BED IS LOCKED, LOW, WITH BED ALARM ON. WILL CONTINUE TO MONITOR THIS PATIENT Q15 MINUTES WITH THE HELP OF STAFF TO MAINTAIN SAFETY.
[2021-07-22 20:52] VITALS: BP 142/92
[2021-07-22] MEDS: ZOLPIDEM TARTRATE 10 MG TABLET PO PRN (21:59)
[2021-07-23 08:00] VITALS: BP 153/87
[2021-07-23] MEDS: DEXILANT 60 MG PO SCH (08:08)
[2021-07-23] MEDS: INVEST MED Kar XT OR PLACEBO 50/20 MG PO SCH ×2 (10:01→21:16)
--- NOTE | 2021-07-23 10:39 | NUR ---
RN Notes: Received pt. awake in bed, no distress and no agitation noted. Ate 100% for breakfast, compliant on meds. Encouraged to verbalize feelings, motivated to attend group activity and encouraged to take shower. Needs attended and will continue to monitor for safety.
[2021-07-23 16:00] VITALS: BP 135/86
--- NOTE | 2021-07-23 19:30 | NUR ---
GPS RN NOTE, RECEIVED PATIENT AWAKE AND IN BED, NO S/S OR COMPLAINTS OF PAIN AT THIS TIME. PATIENT IS TAKING MEDICATION FOR THIS DISCOMFORT. PATIENT IS DISPLAYING NO S/S OF APPARENT DISTRESS AT THIS TIME. PATIENT BREATHING IS UNLABORED WITH EQUAL RISE AND FALL OF THE CHEST. PATIENT IS ALERT AND ORIENTED X 3 ON ROOM AIR WITH A SPO2 98%. PATIENT IS COMPLIANT WITH MEDICATIONS, ANXIOUS, PARANOID, POLITE, EASILY IRRITABLE, MAKES NEEDS KNOWN, AND COOPERATIVE. PATIENT WOULD LIKE A ROOM CHANGE WHEN AVAILABLE. PATIENT DENIES SUICIDAL AND HOMICIDAL IDEATIONS AT THIS TIME. PATIENT ASSISTED WITH TURNING AND REPOSITIONING Q2HR AND PRN FOR COMFORT AND CIRCULATION. PATIENT HAS NO NEEDS AT THIS TIME. PATIENT EDUCATED ON THE USE OF THE CALL LOMBARDI. PATIENT BED SIDE RAILS UP X 2 FOR SAFETY. PATIENT BED IS LOCKED, LOW, WITH BED ALARM ON. WILL CONTINUE TO MONITOR THIS PATIENT Q15 MINUTES WITH THE HELP OF STAFF TO MAINTAIN SAFETY.
[2021-07-23 20:00] VITALS: BP 137/89
[2021-07-23] MEDS: ZOLPIDEM TARTRATE 10 MG TABLET PO PRN (21:16)
[2021-07-23] MEDS: MAG HYDROX/AL HYDROX/SIMETH 30 ML UDC PO PRN (22:07)
--- NOTE | 2021-07-23 22:07 | NUR ---
GPS RN NOTE, PATIENT HAS A COMPLAINT OF INDIGESTION AND IS REQUESTING MAALOX AT THIS TIME. PATIENT VITAL SIGNS ARE STABLE. PATIENT VITAL SIGNS ARE STABLE. GAVE MAALOX 30ML 1 UNIT DOSE PO Q6HRS PO PRN ORDERED. WILL CONTINUE TO MONITOR THIS PATIENT WITH THE HELP OF STAFF.
[2021-07-24 08:00] VITALS: BP 136/95
[2021-07-24] MEDS: DEXILANT 60 MG PO SCH (09:22)
[2021-07-24] MEDS: INVEST MED Kar XT OR PLACEBO 50/20 MG PO SCH ×2 (10:08→21:56)
[2021-07-24 16:00] VITALS: BP 125/91
[2021-07-24 20:40] VITALS: BP 125/97
[2021-07-25] MEDS: MAG HYDROX/AL HYDROX/SIMETH 30 ML UDC PO PRN (06:58)
[2021-07-25] MEDS ORDERED: IBUPROFEN 200 MG TABLET PO PRN (07:00)
[2021-07-25] MEDS ORDERED: LORAZEPAM 1 MG TABLET FOR AGITATION/ANXIETY PO PRN (07:00)
[2021-07-25] MEDS ORDERED: ZOLPIDEM TARTRATE 10 MG TABLET PO PRN (07:00)
[2021-07-25] MEDS ORDERED: ACETAMINOPHEN ES 500 MG TABLET PO PRN (07:00)
[2021-07-25] MEDS ORDERED: MAGNESIUM HYDROXIDE 30 ML UDC PO PRN (07:00)
--- NOTE | 2021-07-25 07:01 | NUR ---
RN NOTES: PATIENT IS RESTING COMFORTABLY IN BED. PATIENT SLEPT 8HR THIS SHIFT. NO C/O PAIN THIS SHIFT. NO BEHAVIORAL ISSUES THIS SHIFT. NO S/S OF DISTRESS. RESPIRATION EVEN AND UNLABORED WITH EQUAL RISE AND FALL OF THE CHEST, ON ROOM AIR. ALL PATIENT CARE NEEDS HAVE BEEN MET ANTICIPATED. WILL CONTINUE TO MONITOR AND ENDORSE TO AM SHIFT.
--- NOTE | 2021-07-25 07:02 | NUR ---
RN NOTE: PATIENT COMPLAINT OF INDIGESTION AND IS REQUESTING MAALOX AT THIS TIME. PATIENT VITAL SIGNS ARE STABLE. GAVE MAALOX 30ML 1 UNIT DOSE PO Q6HRS PO PRN ORDERED. WILL CONTINUE TO MONITOR .
[2021-07-25 08:00] VITALS: BP 148/96
--- NOTE | 2021-07-25 09:00 | NUR ---
Patient alert,verbally responsive poor insight poor judgment ,patient hearing voices ,preoccupied with his own thoughts ,Continue to monitor for safety q15 minutes encourage patient to verbalize feelings and thoughts redirect as needed.
[2021-07-25] MEDS: INVEST MED Kar XT OR PLACEBO 50/20 MG PO SCH ×2 (09:38→21:46)
[2021-07-25] MEDS: DEXILANT 60 MG PO SCH (09:47)
--- NOTE | 2021-07-25 13:00 | NUR ---
Patient staying in his room ,listening to music,no interaction with peers Continue to monitor for safety q15 minutes redirect as needed , encourage patient to verbalize feelings and thoughts .
[2021-07-25 16:00] VITALS: BP 144/91
--- NOTE | 2021-07-25 19:30 | NUR ---
RN NOTES: PATIENT IN HIS ROOM AWAKE, ALERT , PT IS LISTENING TO MUSIC. NO ACUTE DISTRESS NO SOB NOTED. PATIENT REMAINS ISOLATIVE. PATIENT STILL HEARING VOICES,AND PT. HAVING VISUAL HALLUCINATION , DENIES SI/HI AT THIS TIME. SAFETY PRECAUTIONS MAINTAINED. WILL CONTINUE TO MONITOR Q15MIN ROUNDS FOR SAFETY AND BEHAVIOR.
[2021-07-25 20:00] VITALS: BP 128/95
[2021-07-25] MEDS: ZOLPIDEM TARTRATE 10 MG TABLET PO PRN (22:06)
--- NOTE | 2021-07-25 22:15 | NUR ---
RN NOTES: INSOMNIA PT. C/O INSOMNIA ,PRN AMBIEN 10 MG PO GIVEN PER PT. REQUEST, WILL CONTINUE TO MONITOR.
--- NOTE | 2021-07-26 06:49 | NUR ---
RN NOTES: PATIENT IS RESTING COMFORTABLY IN BED. PATIENT SLEPT 7 HR THIS SHIFT. NO C/O PAIN THIS SHIFT. NO BEHAVIORAL ISSUES THIS SHIFT. NO S/S OF DISTRESS. RESPIRATION EVEN AND UNLABORED WITH EQUAL RISE AND FALL OF THE CHEST, ON ROOM AIR. ALL PATIENT CARE NEEDS HAVE BEEN MET ANTICIPATED. WILL CONTINUE TO MONITOR AND ENDORSE TO AM SHIFT.
[2021-07-26 08:00] VITALS: BP 129/92
[2021-07-26] MEDS: DEXILANT 60 MG PO SCH (08:50)
--- NOTE | 2021-07-26 09:00 | NUR ---
RN NOTE Patient in bed awake, A/O x 3 with poor insight and poor judgement. Patient is hearing voices and pre-occupied with his own thoughts. Patient is cooperative with care and compliant with medications. Safety precautions in place. Will continue to monitor q15 mins and encourage to verbalize feelings and thoughts.
[2021-07-26] MEDS: INVEST MED Kar XT OR PLACEBO 50/20 MG PO SCH ×2 (09:58→21:22)
--- NOTE | 2021-07-26 13:00 | NUR ---
RN NOTE Patient in bed awake, watching on his phone. With poor insight, poor judgement, and pre-occupied with his own thoughts. Denies any SI. Patient is cooperative with care. Safety precautions in place. Will continue to monitor q15 mins and encourage to verbalize feelings and thoughts.
[2021-07-26 16:00] VITALS: BP 147/91
--- NOTE | 2021-07-26 19:20 | NUR ---
RN NOTES: PATIENT IN HIS ROOM AWAKE, ALERT , PT IS LISTENING TO MUSIC AND POOR INSIGHT ,POOR JUDGEMENT. NO ACUTE DISTRESS NO SOB NOTED. PATIENT REMAINS ISOLATIVE. PATIENT STILL HEARING VOICES,AND PT. HAVING VISUAL HALLUCINATION , DENIES SI/HI AT THIS TIME. SAFETY PRECAUTIONS MAINTAINED. COOPERATIVE WITH CARE ,WILL CONTINUE TO MONITOR Q15MIN ROUNDS FOR SAFETY AND BEHAVIOR.
[2021-07-26 20:00] VITALS: BP 139/64
--- NOTE | 2021-07-26 20:00 | NUR ---
RN NOTES: PT. SEEN BY DR. MURRELL , NO NEW ORDERS GIVEN, WILL CONTINUE WITH CARE.
[2021-07-26] MEDS: ZOLPIDEM TARTRATE 10 MG TABLET PO PRN (22:40)
--- NOTE | 2021-07-26 22:41 | NUR ---
RN NOTES: INSOMNIA PT. C/O UNABLE TO SLEEP ,PRN AMBIEN 10 MG PO GIVEN PER PT. REQUEST, WILL CONTINUE TO MONITOR.
[2021-07-27] MEDS: DEXILANT 60 MG PO SCH (08:23)
[2021-07-27] MEDS: MAG HYDROX/AL HYDROX/SIMETH 30 ML UDC PO PRN (08:54)
--- NOTE | 2021-07-27 08:54 | NUR ---
MAALOX PRN GIVEN FOR INDIGESTION. WILL CONTINUE TO MONITOR.
[2021-07-27] MEDS: INVEST MED Kar XT OR PLACEBO 50/20 MG PO SCH ×2 (10:08→20:50)
[2021-07-27 20:00] VITALS: BP 129/88
[2021-07-27] MEDS: ZOLPIDEM TARTRATE 10 MG TABLET PO PRN (21:48)
[2021-07-28] MEDS: DEXILANT 60 MG PO SCH (08:07)
--- NOTE | 2021-07-28 09:52 | NUR ---
RN-CO: Patient remains compliant with his medications. He follows unit rules and regulations, he is polite when approach. At this time he denied pain and discomforts. I will continue to monitor.
[2021-07-28] MEDS: INVEST MED Kar XT OR PLACEBO 50/20 MG PO SCH ×2 (10:00→22:03)
[2021-07-28 15:35] VITALS: BP 135/79
--- NOTE | 2021-07-28 15:55 | NUR ---
RN-CO: PT REQUESTED FOR ENSURE LUIS FLAVOR. OBTAINED AN ORDER FROM DR NANCY MD ORDERED NOTED.
[2021-07-28] MEDS: ENSURE ENLIVE CHOC 237 ML CAN PO SCH (17:00)
--- NOTE | 2021-07-28 19:30 | NUR ---
GPS RN NOTE, RECEIVED PATIENT AWAKE AND IN BED, NO S/S OR COMPLAINTS OF PAIN AT THIS TIME. PATIENT IS DISPLAYING NO S/S OF APPARENT DISTRESS AT THIS TIME. PATIENT BREATHING IS UNLABORED WITH EQUAL RISE AND FALL OF THE CHEST. PATIENT IS ALERT AND ORIENTED X 3 ON ROOM AIR WITH A SPO2 97%. PATIENT IS COMPLIANT WITH MEDICATIONS, ANXIOUS, PARANOID, POLITE, EASILY IRRITABLE, MAKES NEEDS KNOWN, AND COOPERATIVE. PATIENT WOULD LIKE A ROOM CHANGE WHEN AVAILABLE. PATIENT DENIES SUICIDAL AND HOMICIDAL IDEATIONS AT THIS TIME. PATIENT ASSISTED WITH TURNING AND REPOSITIONING Q2HR AND PRN FOR COMFORT AND CIRCULATION. PATIENT HAS NO NEEDS AT THIS TIME. PATIENT EDUCATED ON THE USE OF THE CALL LOMBARDI. PATIENT BED SIDE RAILS UP X 2 FOR SAFETY. PATIENT BED IS LOCKED, LOW, WITH BED ALARM ON. WILL CONTINUE TO MONITOR THIS PATIENT Q15 MINUTES WITH THE HELP OF STAFF TO MAINTAIN SAFETY.
[2021-07-28 20:00] VITALS: BP 131/95
[2021-07-28] MEDS: ZOLPIDEM TARTRATE 10 MG TABLET PO PRN (22:05)
[2021-07-29 08:00] VITALS: BP 152/89
[2021-07-29] MEDS: ENSURE ENLIVE CHOC 237 ML CAN PO SCH ×2 (08:16→17:06)
[2021-07-29] MEDS: DEXILANT 60 MG PO SCH (08:17)
[2021-07-29] MEDS: INVEST MED Kar XT OR PLACEBO 50/20 MG PO SCH ×2 (09:57→21:59)
--- NOTE | 2021-07-29 10:02 | NUR ---
RN Notes: Received pt. awake in bed, responsive to staffs, no distress and no agitation noted. Ate 100% for breakfast, compliant on meds. Pt. had shower. Needs attended and will continue to monitor for safety.
[2021-07-29 16:00] VITALS: BP 137/69
--- NOTE | 2021-07-29 19:30 | NUR ---
GPS FLOAT RN OPENING NOTES RECEIVED PATIENT IN BED WITH EYES CLOSED, EASY TO AROUSE, HOB IN FLAT POSITION. NO S/S OF APPARENT DISTRESS ON ROOM AIR. NOT EXHIBITING PAIN VIA FLACC. WILL CONTINUE TO MONITOR, ASSESS, AND EDUCATE PATIENT. WILL IMPLEMENT PLAN OF CARE PATIENT'S CONDITION PERMITS. WILL COLLABORATE WITH THERAPEUTIC TEAM TO REACH PATIENT'S GOAL AND DO Q15 VISUAL CHECKS TO ENSURE PATIENT SAFETY.
[2021-07-29 19:55] VITALS: BP 133/91
[2021-07-29 20:15] VITALS: BP 133/91
[2021-07-29] MEDS: ZOLPIDEM TARTRATE 10 MG TABLET PO PRN (22:05)
[2021-07-30 08:00] VITALS: BP 121/60
[2021-07-30] MEDS: DEXILANT 60 MG PO SCH (08:02)
[2021-07-30] MEDS: ENSURE ENLIVE CHOC 237 ML CAN PO SCH ×2 (08:02→17:03)
[2021-07-30] MEDS: INVEST MED Kar XT OR PLACEBO 50/20 MG PO SCH ×2 (09:57→21:57)
--- NOTE | 2021-07-30 10:08 | NUR ---
RN Notes: Pt. ate 100% for breakfast, compliant on meds including the investigational meds. Pt. had shower and went for smoking. Needs attended, no distress and no agitation noted. Will continue to monitor for safety.
[2021-07-30 16:00] VITALS: BP 143/99
--- NOTE | 2021-07-30 19:47 | NUR ---
GPS RN NOTE RECEIVED PATIENT AWAKE AND IN BED. PATIENT IS DISPLAYING NO S/S OF APPARENT DISTRESS AT THIS TIME. PATIENT BREATHING IS UNLABORED WITH EQUAL RISE AND FALL OF THE CHEST. A/O X 3. PATIENT IS COMPLIANT WITH MEDICATIONS, ANXIOUS, PARANOID, POLITE, EASILY IRRITABLE, MAKES NEEDS KNOWN, AND COOPERATIVE. PATIENT DENIES SUICIDAL AND HOMICIDAL IDEATIONS AT THIS TIME. SAFETY PRECAUTIONS IN PLACE. BED IN LOWEST LOCKED POSITION, SIDE RAILS UP X2, AND CALL LIGHT AND TABLE WITHIN REACH. WILL MONITOR Q15 MIN TO ENSURE SAFETY.
[2021-07-30] MEDS: ZOLPIDEM TARTRATE 10 MG TABLET PO PRN (21:57)
[2021-07-31 08:00] VITALS: BP 128/99
[2021-07-31] MEDS: ENSURE ENLIVE CHOC 237 ML CAN PO SCH ×2 (08:30→16:09)
[2021-07-31] MEDS: INVEST MED Kar XT OR PLACEBO 50/20 MG PO SCH ×3 (09:01→22:02)
[2021-07-31] MEDS: DEXILANT 60 MG PO SCH (09:08)
--- NOTE | 2021-07-31 10:33 | NUR ---
RN-CO: Patient stated that his, AH/VH is getting better. He also stated that he is less paranoid. I will continue to monitor.
[2021-07-31 16:00] VITALS: BP 134/89
--- NOTE | 2021-07-31 19:30 | NUR ---
RN NOTES: PATIENT IN HIS ROOM AWAKE, ALERT AND ORIENTED X3, PT IS LISTENING TO MUSIC. NO ACUTE DISTRESS NO SOB NOTED. PATIENT REMAINS ISOLATIVE. PATIENT STILL HEARING VOICES,AND PT. HAVING VISUAL HALLUCINATION , DENIES SI/HI AT THIS TIME. SAFETY PRECAUTIONS MAINTAINED. WILL CONTINUE TO MONITOR Q15MIN ROUNDS FOR SAFETY AND BEHAVIOR.
[2021-07-31 21:05] VITALS: BP 135/94
[2021-08-01] MEDS: DEXILANT 60 MG PO SCH (08:25)
[2021-08-01] MEDS: ENSURE ENLIVE CHOC 237 ML CAN PO SCH ×2 (08:25→17:57)
--- NOTE | 2021-08-01 09:00 | NUR ---
Patient alert ,verbally responsive ,poor judgment ,no interaction with peers .isolative and withdrawn ,stay in his room ,no plan for self care will continue to monitor for safety q15 minutes .
[2021-08-01] MEDS: INVEST MED Kar XT OR PLACEBO 50/20 MG PO SCH ×2 (09:11→21:35)
[2021-08-01] MEDS ORDERED: LORAZEPAM 1 MG TABLET FOR AGITATION/ANXIETY PO PRN (13:00)
[2021-08-01] MEDS ORDERED: ZOLPIDEM TARTRATE 10 MG TABLET PO PRN (13:00)
[2021-08-01 16:00] VITALS: BP 148/92
--- NOTE | 2021-08-01 19:32 | NUR ---
RN NOTES: PATIENT IN HIS ROOM AWAKE, ALERT AND ORIENTED X3, NO ACUTE DISTRESS NO SOB NOTED. PATIENT REMAINS ISOLATIVE. PATIENT STILL HEARING VOICES,AND PT. HAVING VISUAL HALLUCINATION , DENIES SI/HI AT THIS TIME. SAFETY PRECAUTIONS MAINTAINED. WILL CONTINUE TO MONITOR Q15MIN ROUNDS FOR SAFETY AND BEHAVIOR.
[2021-08-02] MEDS: MAG HYDROX/AL HYDROX/SIMETH 30 ML UDC PO PRN (04:13)
--- NOTE | 2021-08-02 04:14 | NUR ---
RN NOTE: PATIENT COMPLAINT OF INDIGESTION AND IS REQUESTING MAALOX AT THIS TIME. PATIENT VITAL SIGNS ARE STABLE. GAVE MAALOX 30ML . WILL CONTINUE TO MONITOR .
[2021-08-02 08:00] VITALS: BP 129/91
[2021-08-02] MEDS: DEXILANT 60 MG PO SCH (08:01)
[2021-08-02] MEDS: ENSURE ENLIVE CHOC 237 ML CAN PO SCH ×2 (08:11→16:02)
[2021-08-02] MEDS: INVEST MED Kar XT OR PLACEBO 50/20 MG PO SCH ×2 (10:04→21:23)
[2021-08-02 16:00] VITALS: BP 145/99
--- NOTE | 2021-08-02 19:40 | NUR ---
RN NOTES, PATIENT IN HIS ROOM IN BED AWAKE, ALERT AND ORIENTED X3, AT ROOM AIR, NO SOB/ACUTE DISTRESS NOTED, NO C/O PAIN OR DISCOMFORT, . PATIENT REMAINS ISOLATIVE, PATIENT STILL HEARING VOICES,AND PT. HAVING VISUAL HALLUCINATION , DENIES SI/HI AT THIS TIME, SAFETY PRECAUTIONS MAINTAINED AT ALL TIME, WILL CONTINUE TO MONITOR Q15MIN ROUNDS FOR SAFETY AND BEHAVIOR, NO DISRUPTIVE BEHAVIOR NOTED AT TIS TIME.
[2021-08-02 20:00] VITALS: BP 133/96
--- NOTE | 2021-08-03 07:00 | NUR ---
RN NOTES, PATIENT NPO SINCE MIDNIGHT PER DR SCALSE ORDERS, PATIENT AWARE AND VERBALIZED UNDERSTANDING, NO SOB/DISTRESS NOTED, NO DISRUPTIVE BEHAVIOR NOTED THROUGHOUT THE NIGHT, WITH ADEQUATE HOURS OF SLEEP, WILL ENDORSE CONTINUATION OF CARE TO ONCOMING NURSE.
[2021-08-03] MEDS: DEXILANT 60 MG PO SCH ×2 (09:00→09:16)
[2021-08-03] MEDS: ENSURE ENLIVE CHOC 237 ML CAN PO SCH (09:14)
[2021-08-03] MEDS: INVEST MED Kar XT OR PLACEBO 50/20 MG PO SCH (10:00)
--- NOTE | 2021-08-03 12:10 | NUR ---
Patient discharged home in stable condition.Compliant with medications ,cooperative with treatment plans Patient denies SI/HI/AVH .Behavior improved ,psychiatric tx plans met ,medical tx plans differed for for continual monitoring .Educated pt about after care plan (Exit -care)and copy provided .Returned personal belongings to patient med list given and explained to patient able to verbalize understanding .Vs stable ,no c/o pain .Patient seen by with discharge orders and Patient discharge at 12:10 with staff from office .
== END 2021-08-03 12:10 | disposition home or self-care (01) | DRG 951 ==
LOC: MEDOV2 15:18
PROVIDERS: ADMIT Psychiatry & Neurology Psychiatry; ATTEND Psychiatry & Neurology Psychiatry
DX: Z00.6 Encounter for examination for normal comparison and control in clinical research program (principal); F20.0 Paranoid schizophrenia; J45.909 Unspecified asthma, uncomplicated; Z88.8 Allergy status to other drugs, medicaments and biological substances
CPT/HCPCS: 36415; 80053-TC; 80061-TC; 87081-TC; G0378

== ENCOUNTER 2022-04-10 15:07 | Inpatient (IN) | payer OTHER ==
[~2022-04-10] VITALS: Ht 172.7 cm; Wt 89.8 kg
--- NOTE | 2022-04-10 15:10 | NUR ---
RN Receiving Report Patient AOx4, arrived to unit ambulating accompanied by staff. Patient able to provide his health history and his past information. Oriented patient to unit and made aware of sign in and out sheet. Patient arrived with a large roll in luggage. Stable and steady gait. All questions answered, will complete initial assessment and document. All safety precautions taken, call light and table within reach, patient asked to keep bed high, educated on precautions to take. Will continue to monitor and provide care as needed.
[2022-04-10] MEDS ORDERED: MAGNESIUM HYDROXIDE 30 ML UDC PO PRN (16:30)
[2022-04-10] MEDS ORDERED: IBUPROFEN 200 MG TABLET PO PRN (16:30)
[2022-04-10] MEDS ORDERED: ZOLPIDEM TARTRATE 10 MG TABLET PO PRN (16:30)
[2022-04-10] MEDS ORDERED: ALBUTEROL SULFATE 8 GM HFA.AER.AD IH PRN (16:30)
[2022-04-10] MEDS ORDERED: ACETAMINOPHEN ES 500 MG TABLET PO PRN (16:30)
[2022-04-10] MEDS: FLUPHENAZINE HCL 5 MG TABLET PO SCH (18:08)
--- NOTE | 2022-04-10 18:36 | NUR ---
RN Closing Note Patient AOx4,. Patient remained stable throughout shift. All safety precautions taken, call light and table within reach, patient asked to keep bed high, educated on precautions to take. Will continue to monitor and provide care as needed.
--- NOTE | 2022-04-10 19:30 | NUR ---
RN OPENING NOTE RECEIVED PATIENT IN BED, ASLEEP BUT EASY TO AROUSE AND RESPONSIVE. AFEBRILE AND NOT IN ANY FORM OF ACUTE DISTRESS. BREATHING EVEN AND NON LABORED. NO C/O PAIN OR DISCOMFORT AT THIS TIME. SAFETY MEASURES IN PLACE. ASKED TO PUT THE BED LOW BUT PATIENT PREFER IT HIGHER. KEPT BED IN LOCKED POSITION. SIDE RAILS UP X2. ADVISED TO USE THE CALL LIGHT WHEN IN NEED OF ASSISTANCE.
[2022-04-10] MEDS ORDERED: OLANZAPINE 5 MG TABLET PO SCH (22:00)
--- NOTE | 2022-04-11 06:31 | NUR ---
RN CLOSING NOTE PATIENT IN BED, ALERT AND ORIENTED X4. ABLE TO COMMUNICATE NEEDS WITH THE STAFFS. AFEBRILE AND NOT IN ANY FORM OF ACUTE DISTRESS. BREATHING EVEN AND NON LABORED. NO C/O PAIN OR DISCOMFORT. MEDICATED ORDERED. OFFERED AND ENCOURAGED FLUIDS TOLERATED. SAFETY MEASURES IN PLACE. ASKED TO PUT THE BED LOW BUT PATIENT PREFER IT HIGHER. KEPT BED IN LOCKED POSITION. SIDE RAILS UP X2. ADVISED TO USE THE CALL LIGHT WHEN IN NEED OF ASSISTANCE. ALL NURSING NEEDS ATTENDED.
[2022-04-11 06:43] VITALS: BP 125/80
--- NOTE | 2022-04-11 07:30 | NUR ---
RN MS NOTES PT AWAKE, ALERT AND ORIENTED, WALKING ALONG THE HALLWAY IN STEADY GAIT, NO COMPLAINT AT THIS TIME, NO BEHAVIOR PROBLEM NOTED.
[2022-04-11 08:00] VITALS: BP 140/89
[2022-04-11] MEDS: DEXILANT 60 MG PO SCH (08:42)
[2022-04-11] MEDS: FLUPHENAZINE HCL 5 MG TABLET PO SCH (17:42)
--- NOTE | 2022-04-11 18:44 | NUR ---
RN MS NOTES PT IN HIS ROOM, ALERT AND ORIENTED, COMPLIANT WITH MEDICATIONS, WALKS ALONG THE HALLWAY WITH STEADY GAIT, NO BEHAVIOR PROBLEM, ALL NEEDS ATTENDED.
--- NOTE | 2022-04-11 19:00 | NUR ---
MS RN OPENING NOTE RECEIVED PATIENT IN BED, SLEEPING BUT EASY TO BE AROUSEED. A/O X 4. PATIENT IS ON RA, NO S/S OF SOB OR DISTRESS; TOLERATED WELL. NO C/O PAIN OR DISCOMFORT. PATIENT IS CALM; HE DENIES OF HAVING ANY PSYCHYATRIC SYMPTOMS. SAFETY MEASURES IN PLACE. BED IN LOW AND LOCKED POSITION. SIDE RAILS UP X2. ADVISED TO USE THE CALL LIGHT WHEN IN NEED OF ASSISTANCE. WILL CONTINUE MONITOR PATIENT'S CONDITION THROUGHOUT THE SHIFT.
[2022-04-11 20:00] VITALS: BP 138/87
[2022-04-11] MEDS ORDERED: OLANZAPINE 5 MG TABLET PO SCH (22:00)
--- NOTE | 2022-04-12 07:17 | NUR ---
MS RN CLOSING NOTE PATIENT IS IN THE ROOM ORGANIZING HIS LUGGAGE. A/O X 4. PATIENT IS ON RA, NO S/S OF SOB OR DISTRESS; TOLERATED WELL. NO C/O PAIN OR DISCOMFORT. PATIENT IS CALM; HE DENIES OF HAVING ANY PSYCHIATRIC SYMPTOMS. SAFETY MEASURES IN PLACE. BED IN LOW AND LOCKED POSITION. SIDE RAILS UP X2. ADVISED TO USE THE CALL LIGHT WHEN IN NEED OF ASSISTANCE. WILL ENDORSE NEXT SHIFT NURSE FOR CONTINUING PATIENT CARE.
--- NOTE | 2022-04-12 07:17 | NUR ---
MS RN OPENING NOTES PATIENT RECEIVED ASLEEP IN BED, EASILY AWAKENS TO STIMULI. PT IS A/O X 4. ABLE TO MAKE NEEDS KNOWN, DENIES PAIN OR ANY DISCOMFORTS AT THIS TIME. ON ROOM AIR, TOLERATING WELL, BREATHING EVEN AND UNLABORED. SAFETY MEASURES IN PLACE: BED IN LOW AND LOCKED POSITION, SIDE RAILS UP X2 AND CALL LIGHT WHEN IN EASY REACH OF PT. WILL CONTINUE TO MONITOR PATIENT ACCORDINGLY. .
[2022-04-12] MEDS: DEXILANT 60 MG PO SCH (07:34)
[2022-04-12 08:00] VITALS: BP 131/83
--- NOTE | 2022-04-12 18:35 | NUR ---
MS RN CLOSING NOTES PATIENT RESTING IN BED AT THIS TIME. A/O X 4. ABLE TO MAKE NEEDS KNOWN. AMBULATORY WITH STEADY GAIT. ON ROOM AIR, TOLERATING WELL, BREATHING EVEN AND UNLABORED. NEEDS ATTENDED WELL. SAFETY MEASURES IN PLACE: BED IN LOWEST LOCKED POSITION, SIDE RAILS UP X2 AND CALL LIGHT WHEN IN EASY REACH OF PT. WILL ENDORSE POC TO [employer]URNACE CHARGING MACHINE OPERATOR NURSE.
--- NOTE | 2022-04-12 19:40 | NUR ---
MS RN NOTES/CLINICAL TRIAL RECEIVED IN ROOM WATCHING TV PROGRAM.ANSWER SIMPLE QUESTION RIGHT,WILL CONTINUE TO MONITOR BEHAVIOR.
[2022-04-12 20:00] VITALS: BP 138/76
--- NOTE | 2022-04-13 07:03 | NUR ---
MS RN NOTES/CL SLEEP WELL AT NIGHT.NO BEHAVIORAL PROBLEM NOTED.
[2022-04-13] MEDS: DEXILANT 60 MG PO SCH (07:10)
--- NOTE | 2022-04-13 07:12 | NUR ---
MS RN OPENING NOTES RECEIVED PATIENT IN BED AWAKE, A/O X 4. ABLE TO MAKE NEEDS KNOWN, DENIES PAIN OR ANY DISCOMFORTS AT THIS TIME. ON ROOM AIR, TOLERATING WELL, BREATHING EVEN AND UNLABORED. SAFETY MEASURES IN PLACE: BED IN LOWEST LOCKED POSITION, SIDE RAILS UP X2 AND CALL LIGHT WHEN IN EASY REACH OF PT. WILL CONTINUE TO MONITOR PATIENT ACCORDINGLY.
[2022-04-13 16:00] VITALS: BP 133/93
--- NOTE | 2022-04-13 18:34 | NUR ---
MS RN CLOSING NOTES PATIENT IN BED WATCHING TV AT THIS TIME. A/O X 4. ABLE TO VERBALIZED NEEDS. AMBULATORY WITH STEADY GAIT. TOLERATING ROOM AIR WELL, BREATHING EVEN AND UNLABORED. NEEDS ATTENDED WELL. SAFETY MEASURES IN PLACE: BED IN LOWEST LOCKED POSITION, SIDE RAILS UP X2 AND CALL LIGHT WHEN IN EASY REACH OF PT. WILL ENDORSE POC TO LEGAL DOCUMENT SPECIALIST NURSE.
--- NOTE | 2022-04-13 19:45 | NUR ---
MS RN/CL NOTES RECEIVED ON BED SLEEPING,DENIES ANY DISCOMFORTS,FOLLOW INSTRUCTION.WILL CONTINUE TO MONITOR BEHAVIOR.
[2022-04-13 20:00] VITALS: BP 140/83
[2022-04-13 20:13] VITALS: BP 140/83
--- NOTE | 2022-04-14 06:55 | NUR ---
MS RN/CL NOTES DISPLAYS NO BEHAVIORAL PROBLEM NOTED.SLEEP WELL AT NIGHT.
[2022-04-14 07:00] VITALS: BP 138/79
--- NOTE | 2022-04-14 07:30 | NUR ---
RN OPENING NOTE- PATIENT IN BED AWAKE, A/O X 4. ABLE TO MAKE NEEDS KNOWN, DENIES PAIN. ON ROOM AIR, TOLERATING WELL, BREATHING EVEN AND NON-LABORED. SAFETY MEASURES IN PLACE: BED IN LOWEST LOCKED POSITION, SIDE RAILS UP X2 AND CALL LIGHT WHEN IN EASY REACH OF PT. WILL CONTINUE TO MONITOR / ASSIST.
[2022-04-14] MEDS: LORAZEPAM 1 MG TABLET FOR AGITATION PO PRN (07:40)
--- NOTE | 2022-04-14 07:40 | NUR ---
RN NOTE- ANXIETY REPORTED. ATIVAN 1 MG ADMINISTERED
[2022-04-14] MEDS: DEXILANT 60 MG PO SCH (07:43)
[2022-04-14 16:00] VITALS: BP 126/81
--- NOTE | 2022-04-14 18:22 | NUR ---
RN CLOSING NOTE- PATIENT IN ROOM AWAKE, NO BEHAVIORAL ISSUES, A/O X 4. ABLE TO MAKE NEEDS KNOWN, DENIES PAIN. ON ROOM AIR, TOLERATING WELL, BREATHING EVEN AND NON-LABORED. SAFETY MEASURES IN PLACE: BED IN LOWEST LOCKED POSITION, SIDE RAILS UP X2 AND CALL LIGHT WHEN IN EASY REACH OF PT. WILL CONTINUE TO MONITOR / ASSIST.
[2022-04-14 20:00] VITALS: BP 133/87
--- NOTE | 2022-04-14 20:10 | NUR ---
MS RN OPENING NOTES: RECEIVED PATIENT AWAKE IN BED, BED IN LOW POSITION, CALL LIGHTS WITHIN REACH, NO COMPLAIN OF PAIN AND DISCOMFORT AT THIS TIME, ON ROOM AIR SATURATING WELL, PATIENT IS A/OX4 ABLE TO MAKE NEEDS KNOWN, AMBULATORY, ON CLINICAL TRIAL, NO CHANGES IN BEHAVIOR WAS OBSERVED, PATIENT KEPT CLEAN AND DRY ALL NEEDS MET WILL CONTINUE TO MONITOR.
--- NOTE | 2022-04-15 06:34 | NUR ---
MS RN CLOSING NOTES: PATIENT SLEEP IN BED COMFORTABLY, AROUSABLE TO VERBAL STIMULI, BED IN LOW POSITION CALL LIGHTS WITHIN REACH, NO COMPLAIN OF PAIN AND DISCOMFORT AT THIS TIME, ON ROOM AIR SATURATNG WELL, PATIENT IS A/OX4 AMBULATORY, ABLE TO MAKE NEEDS KNOWN, ON CLINICAL TRIAL, NO CHANGES IN BEHAVIOR DURING THE SHIFT, KEPT CLEAN AND DRY ALL NEEDS MET CONTINURE TO MONITOR.
[2022-04-15 07:00] VITALS: BP 134/82
--- NOTE | 2022-04-15 07:40 | NUR ---
ms rn received on bed, clinical trial of dr. moss, awake,alerr,oriented x4,not in any form of distress, respirations even and unlabored,no sob noted, lungs are clear,abdomen soft,positive bowel sounds,denies pain at this time,all needs attended
[2022-04-15] MEDS: DEXILANT 60 MG PO SCH (08:16)
--- NOTE | 2022-04-15 08:30 | NUR ---
ms rn went down for cigarette.
[2022-04-15] MEDS: LORAZEPAM 1 MG TABLET FOR AGITATION PO PRN (09:59)
--- NOTE | 2022-04-15 17:59 | NUR ---
ms rn inside room,no distress noted,all needs attended.
--- NOTE | 2022-04-15 19:44 | NUR ---
MS RN OPENING NOTES: RECEIVED PATIENT SLEEP IN BED COMFORTABLY, AROUSABLE TO VERBAL STIMULI, BED IN LOW POSITION CALL LIGHTS WITHIN REACH,NO COMPLAIN OF PAIN AND DISCOMFORT AT THIS TIME, ON ROOM AIR SATURATING WELL, PATIENT IS A/OX4 AMBULATORY, ABLE TO MAKE NEEDS KNOWN, ON CLINICAL TRIAL, NO CHANGES IN BEHAVIOR WAS OBSERVED, WILL CONTINUE TO MONITOR.
[2022-04-15 20:00] VITALS: BP 120/72
--- NOTE | 2022-04-16 06:10 | NUR ---
MS RN CLOSING NOTES: PATIENT SLEEP IN BED COMFORTABLY, AROUSABLE TO VERBAL STIMULI, BED IN LOW POSITION CALL LIGHTS WITHIN REACH, NO COMPLAIN OF PAIN AND DISCOMFORT AT THIS TIME ON ROOM AIR SATURATING WELL, PATIENT IS A/O X4 ABLE TO MAKE NEEDS KNOWN, AMBULATORY, ON CLINICAL TRIAL NO CHANGES IN BEHAVIOR WAS OBSERVED, PATIENT KEPT CLEAN AND DRY ALL NEEDS MET ENDORSE TO INCOMING SHIFT.
[2022-04-16 07:00] VITALS: BP 122/81
--- NOTE | 2022-04-16 07:20 | NUR ---
MS RN OPENING NOTES: PATIENT IN RESTROOM. ABLE TO MAKE NEEDS KNOWN, ON CLINICAL TRIAL, NO CHANGES IN BEHAVIOR WAS OBSERVED, WILL CONTINUE TO MONITOR.
--- NOTE | 2022-04-16 07:30 | NUR ---
MS RN OPENING NOTES: PATIENT NOT IN ROOM, MEDS NOT GIVEN AT THIS TIME. WILL CHECK ON PATIENT AGAIN.
[2022-04-16] MEDS: DEXILANT 60 MG PO SCH (08:35)
[2022-04-16 16:00] VITALS: BP 127/82
--- NOTE | 2022-04-16 19:28 | NUR ---
RN OPENING NOTE PATIENT AWAKE IN BED. A/OX4. NO S/S OF DISTRESS, BREATHING WITHOUT DIFFICULTY ON ROOM AIR. PATIENT IN PLEASANT MOOD, MAKING EYE-CONTACT, COOPERATIVE, & NON-MALODOROUS. SAFETY MEASURES IN PLACE: BED LOCKED AND AT LOWEST POSITION, RAILS UP X2, CALL LOMBARDI WITHIN REACH. WILL CONTINUE TO MONITOR PATIENT.
--- NOTE | 2022-04-16 19:29 | NUR ---
MS RN CLOSING NOTES: PATIENT STILL AWAKE AT THIS TIME. A/O X4 ABLE TO MAKE NEEDS KNOWN, AMBULATORY, ON ROOM AIR SATURATING WELL, ON CLINICAL TRIAL NO CHANGES IN BEHAVIOR WAS OBSERVED, BED IN LOW POSITION CALL LIGHTS WITHIN REACH, NO COMPLAIN OF PAIN AND DISCOMFORT AT THIS TIME PATIENT KEPT CLEAN AND DRY ALL NEEDS MET ENDORSE TO INCOMING SHIFT.
[2022-04-16 20:00] VITALS: BP 138/87
[2022-04-17] MEDS: MAG HYDROX/AL HYDROX/SIMETH 30 ML UDC PO PRN ×2 (01:06→20:05)
--- NOTE | 2022-04-17 06:39 | NUR ---
RN CLOSING NOTE PATIENT AWAKE IN BED. A/OX4. NO S/S OF DISTRESS, BREATHING WITHOUT DIFFICULTY ON ROOM AIR. PATIENT HAS CONTINUED TO BE IN A PLEASANT AND COOPERATIVE MOOD. PATIENT IS WELL HYGIENICALLY KEMPT. HE DID NOT SLEEP AT ALL DURING THE NIGHT, AND REFUSED ANY SLEEP AID WHEN OFFERED. SAFETY MEASURES IN PLACE: BED LOCKED AND AT LOWEST POSITION, RAILS UP X2, CALL LOMBARDI WITHIN REACH. WILL ENDORSE TO NEXT SHIFT FOR JULIUS.
[2022-04-17 07:00] VITALS: BP 116/84
--- NOTE | 2022-04-17 07:25 | NUR ---
RN OPENING NOTE PATIENT AWAKE IN BED RESTING A/O X 4. NO S/S OF PAIN NOTED AT THIS TIME. ON ROOM AIR, NO DISTRESS OR SHORTNESS OF BREATH NOTED. NO IV ACCESS, PATIENT IS A CLINICAL TRIAL. FALL AND SAFETY MEASURES IN PLACE, BED IN LOW AND LOCK POSITION, CALL LIGHT AND TABLE WITHIN EASY REACH, SIDE RAILS X2. WILL CONTINUE TO MONITOR.
[2022-04-17] MEDS: DEXILANT 60 MG PO SCH (08:11)
--- NOTE | 2022-04-17 18:56 | NUR ---
RN CLOSING NOTE PATIENT AWAKE IN BED RESTING A/O X 4. NO S/S OF PAIN NOTED AT THIS TIME. ON ROOM AIR, NO DISTRESS OR SHORTNESS OF BREATH NOTED. NO IV ACCESS, PATIENT IS A CLINICAL TRIAL. SCHEDULE MEDICATION ADMINISTERED. FALL AND SAFETY MEASURES IN PLACE, BED IN LOW AND LOCK POSITION, CALL LIGHT AND TABLE WITHIN EASY REACH, SIDE RAILS X2. WILL ENDORSE TO ADMITTING MANAGER.
--- NOTE | 2022-04-17 19:42 | NUR ---
RN OPENING NOTE; PATIENT AWAKE IN BED RESTING A/O X 4. NO S/S OF PAIN NOTED AT THIS TIME. ON ROOM AIR, NO DISTRESS OR SHORTNESS OF BREATH NOTED. NO IV ACCESS, PATIENT IS A CLINICAL TRIAL. FALL AND SAFETY MEASURES IN PLACE, BED IN LOW AND LOCK POSITION, CALL LIGHT AND TABLE WITHIN EASY REACH, SIDE RAILS X2. WILL CONTINUE TO MONITOR.
[2022-04-17 20:00] VITALS: BP 124/91
[2022-04-17] MEDS ORDERED: MAG HYDROX/AL HYDROX/SIMETH 30 ML UDC ONE (20:04)
--- NOTE | 2022-04-18 06:14 | NUR ---
RN CLOSING NOTE PATIENT AWAKE IN BED. A/OX4.ON RM AIR ESTEPHANIE WELL,NO SIGN SOB/DISTRESS NOTED,DUE MEDS GIVEN ORDER,ALL NEEDS ATTENDED,NO BEHAVIORAL CHANGES DURING SHIFT,SAFETY MEASURES IN PLACE,VISUAL CHECKED FOR SAFETY, CALL LOMBARDI WITHIN REACH. WILL ENDORSED TO NEXT SHIFT.
--- NOTE | 2022-04-18 07:30 | NUR ---
RN OPENING NOTE PATIENT AWAKE IN BED. A/OX4. NO S/S OF DISTRESS, BREATHING WITHOUT DIFFICULTY ON ROOM AIR. PATIENT COMMUNICATIVE & COOPERATIVE. SAFETY MEASURES IN PLACE: BED LOCKED AND AT LOWEST POSITION, RAILS UP X2, CALL LOMBARDI WITHIN REACH. WILL CONTINUE TO MONITOR PATIENT.
[2022-04-18] MEDS: DEXILANT 60 MG PO SCH (07:54)
[2022-04-18 08:00] VITALS: BP 118/88
[2022-04-18 16:00] VITALS: BP 140/89
--- NOTE | 2022-04-18 18:42 | NUR ---
MS RN CLOSING NOTES: PATIENT WAS SLEEPING IN BED WHEN VISITED, AROUSABLE WHEN PROMPTED, BED IN LOW POSITION CALL LIGHTS WITHIN REACH, NO COMPLAIN OF PAIN AND/OR DISCOMFORT, ROOM AIR SATURATING WELL. PATIENT IS A/O X4 ABLE TO EXPRESS NEEDS AND AMBULATORY. PATIENT ON CLINICAL TRIAL. NO CHANGES IN BEHAVIOR WAS OBSERVED. PATIENT IS CLEAN AND DRY. ALL NEEDS ARE MET.
[2022-04-18 20:00] VITALS: BP 117/68
--- NOTE | 2022-04-19 06:22 | NUR ---
RN CLOSING NOTE; PATIENT AWAKE IN BED. A/OX4.ON RM AIR ESTEPHANIE WELL,NO SIGN SOB/DISTRESS NOTED,DUE MEDS GIVEN ORDER,ALL NEEDS ATTENDED,NO BEHAVIORAL CHANGES DURING SHIFT,SAFETY MEASURES IN PLACE,VISUAL CHECKED FOR SAFETY, CALL LOMBARDI WITHIN REACH. WILL ENDORSED TO NEXT SHIFT.
--- NOTE | 2022-04-19 07:04 | NUR ---
MS RN OPENING NOTES RECEIVED PATIENT AWAKE IN BED LISTENING TO MUSIC, A/Ox4. ON ROOM AIR NO S/S OF RESPIRATORY DISTRESS. PATIENT HAS NO IV ACCESS, SKIN IS INTACT, AMBULATORY. PATIENT IS CLINICAL TRAIL. SAFETY MEASURES IN PLACE: BED LOCKED AND IN LOWEST POSITION, SIDE RAILS UPx2, CALL LIGHT WITHIN REACH, HOB OF BED ELEVATED. WILL CONTINUE TO MONITOR.
[2022-04-19] MEDS: DEXILANT 60 MG PO SCH (07:52)
[2022-04-19 08:00] VITALS: BP 133/75
[2022-04-19] MEDS ORDERED: LORAZEPAM 1 MG TABLET FOR AGITATION PO PRN (13:00)
[2022-04-19] MEDS ORDERED: ZOLPIDEM TARTRATE 10 MG TABLET PO PRN (13:00)
[2022-04-19 16:00] VITALS: BP 136/74
--- NOTE | 2022-04-19 18:46 | NUR ---
MS RN CLOSING NOTES PATIENT AWAKE IN BED LISTENING TO MUSIC, A/Ox4. STABLE ON ROOM AIR NO S/S OF RESPIRATORY DISTRESS. PATIENT HAS NO IV ACCESS, SKIN IS INTACT, AMBULATORY. PATIENT IS CLINICAL TRAIL. SAFETY MEASURES IN PLACE: BED LOCKED AND IN LOWEST POSITION, SIDE RAILS UPx2, CALL LIGHT WITHIN REACH, HOB OF BED ELEVATED. WILL ENDORSE TO NEXT SHIFT ANY JULIUS.
[2022-04-19 20:00] VITALS: BP 123/71
--- NOTE | 2022-04-20 06:08 | NUR ---
MS RN CLOSING NOTES: PATIENT SLEEP IN BED COMFORTABLY, AROUSABLE TO VERBAL STIMULI, BED IN LOW POSITION CALL LIGHTS WITHIN REACH, NO COMPLAIN OF PAIN AND DISCOMFORT AT THIS TIME, ON ROOM AIR SATURATING WELL, PATIENT ON CLINICAL TRIAL, NO CHANGES IN BEHAVIOR WAS OBSERVED, ENDORSE TO INCOMING SHIFT.
[2022-04-20] MEDS: DEXILANT 60 MG PO SCH (07:43)
[2022-04-20] MEDS: INVEST MED CVL-231-2002 PO SCH (10:00)
--- NOTE | 2022-04-20 18:45 | NUR ---
MS RN CLOSING NOTES PATIENT RESTING IN BED AT THIS TIME. A/O X 4. ABLE TO VERBALIZED NEEDS. AMBULATORY WITH STEADY GAIT. TOLERATING ROOM AIR WELL, BREATHING EVEN AND UNLABORED. TOLERATED INVESTIGATIONAL MED THIS MORNING WITH NO INAPPROPRIATE BEHAVIOR EXHIBITED NOTED. NEEDS ATTENDED WELL. SAFETY MEASURES IN PLACE: BED IN LOWEST LOCKED POSITION, SIDE RAILS UP X2 AND CALL LIGHT WHEN IN EASY REACH OF PT. WILL ENDORSE POC TO CESSPOOL CLEANER NURSE.
[2022-04-20 20:00] VITALS: BP 124/62
--- NOTE | 2022-04-20 20:18 | NUR ---
MS RN OPENING NOTES: RECEIVED PATIENT AWAKE IN BED, BED IN LOW POSITION CALL LIGHTS WITHIN REACH., NO COMPLAIN OF PAIN AND DISCOMFORT AT THIS TIME, ON ROOM AIR SATURATING WELL, PATIENT IS A/OX4 AMBULATORY, ABLE TO MAKE NEEDS KNOWN, ON CLINICAL TRIAL NO CHANGES IN BEHAVIOR WAS OBSERVED, PATIENT KEPT CLEAN AND DRY ALL NEEDS MET WILL CONTINUE TO MONITOR.
--- NOTE | 2022-04-21 06:10 | NUR ---
RN CLOSING NOTES: PATIENT AWAKE IN ROOM BED ,IN LOW POSITION, CALL LIGHTS WITHIN REACH, NO COMPLAIN OF PAIN AND DISCOMFORT AT THIS TIME, ON ROOM AIR SATURATING WELL, PATIENT IS A/OX4 ABLE TO MAKE NEEDS KNOWN, NO CHANGES IN BEHAVIOR WAS OBSERVED, ENDORSE TO INCOMING SHIFT.
[2022-04-21] MEDS: DEXILANT 60 MG PO SCH (07:38)
--- NOTE | 2022-04-21 08:08 | NUR ---
MS RN OPENING NOTES PATIENT RECEIVED IN BED AWAKE, A/O X 4. ABLE TO MAKE NEEDS KNOWN, DENIES PAIN OR ANY DISCOMFORTS AT THIS TIME. AMBULATORY . ON ROOM AIR, TOLERATING WELL, BREATHING EVEN AND UNLABORED. SAFETY MEASURES IN PLACE: BED IN LOWEST LOCKED POSITION, SIDE RAILS UP X2 AND CALL LIGHT WHEN IN EASY REACH OF PT. WILL CONTINUE TO MONITOR PATIENT.
[2022-04-21] MEDS: INVEST MED CVL-231-2002 PO SCH (09:58)
--- NOTE | 2022-04-21 18:45 | NUR ---
MS RN CLOSING NOTES PATIENT RESTING IN HIS BED AT THIS TIME. A/O X 4. ABLE TO VERBALIZED NEEDS. AMBULATORY WITH STEADY GAIT. TOLERATING ROOM AIR WELL, BREATHING EVEN AND UNLABORED. INVESTIGATIONAL MED ADMINISTERED THIS MORNING WITH NO NOTED INAPPROPRIATE BEHAVIOR EXHIBITED. NEEDS ATTENDED WELL. SAFETY MEASURES IN PLACE: BED IN LOWEST LOCKED POSITION, SIDE RAILS UP X2 AND CALL LIGHT WHEN IN EASY REACH OF PT. WILL ENDORSE JULIUS TO FAST FOOD COOK NURSE.
--- NOTE | 2022-04-21 19:00 | NUR ---
MS RN OPENING NOTES RECEIVED PT RESTING IN HIS BED AT THIS TIME. A/O X 4. ABLE TO VERBALIZE NEEDS. TOLERATING ROOM AIR WELL, BREATHING EVEN AND UNLABORED. SAFETY MEASURES IN PLACE: BED IN LOWEST LOCKED POSITION, SIDE RAILS UP X2 AND CALL LIGHT WHEN IN EASY REACH OF PT. WILL CONTINUE TO MONITOR AND ASSIST
[2022-04-21 20:35] VITALS: BP 145/87
--- NOTE | 2022-04-22 06:49 | NUR ---
MS RN CLOSING NOTES PT IN BED AWAKE AT THIS TIME. A/O X 4. ABLE TO VERBALIZE NEEDS. STABLE ON RA, WITH NO S/S OF SOB OR LABORED BREATHING. SAFETY MEASURES MAINTAINED: BED IN LOWEST LOCKED POSITION, SIDE RAILS UP X2, CALL LIGHT WITHIN EASY REACH. WILL ENDORSE JULIUS TO AUTO TESTER NURSE.
--- NOTE | 2022-04-22 07:30 | NUR ---
RN MS NOTES PT AWAKE, ALERT AND ORIENTED, WALKING IN HIS ROOM, NO COMPLAINT OF PAIN, NOT IN DISTRESS, CALL LIGHT WITHIN REACH, COMPLIANT WITH MEDICATIONS, NEEDS ATTENDED.
[2022-04-22] MEDS: DEXILANT 60 MG PO SCH (08:06)
[2022-04-22] MEDS: INVEST MED CVL-231-2002 PO SCH (10:00)
--- NOTE | 2022-04-22 18:21 | NUR ---
RN MS NOTES PT IN BED, AWAKE, ALERT AND ORIENTED, WATCHING TV, NO COMPLAINT OF PAIN OR ANY DISCOMFORT AT THIS TIME, NO BEHAVIOR PROBLEM NOTED.
--- NOTE | 2022-04-22 19:15 | NUR ---
MS RN OPENING NOTES RECEIVED PT AWAKE IN BED, WATCHING TV AT THIS TIME. A/O X 4. ABLE TO VERBALIZE NEEDS. ON RA, BREATHING EVEN AND UNLABORED. SAFETY MEASURES IN PLACE: BED IN LOWEST LOCKED POSITION, SIDE RAILS UP X2 AND CALL LIGHT WHEN IN EASY REACH OF PT. WILL CONTINUE TO MONITOR AND ASSIST
[2022-04-22 21:15] VITALS: BP 134/70
--- NOTE | 2022-04-23 07:12 | NUR ---
MS RN CLOSING NOTES PT SLEEPING IN BED AT THIS TIME. A/O X 4. ABLE TO VERBALIZE NEEDS. STABLE ON RA, BREATHING EVEN AND UNLABORED. NO SIGNIFICANT BEHAVIORAL CHANGES NOTED. ALL CARE PROVIDED AND ADMINISTERED MEDICATIONS TOLERATED WELL. SAFETY MEASURES MAINTAINED: BED IN LOWEST LOCKED POSITION, SIDE RAILS UP X2 AND CALL LIGHT WHEN IN EASY REACH OF PT. WILL ENDORSE JULIUS TO DAY SHIFT NURSE.
[2022-04-23 08:38] VITALS: BP 136/86
[2022-04-23] MEDS: DEXILANT 60 MG PO SCH (08:48)
[2022-04-23] MEDS: INVEST MED CVL-231-2002 PO SCH (10:38)
--- NOTE | 2022-04-23 19:22 | NUR ---
RN OPENING NOTE; RECEIVED PATIENT AWAKE IN BED RESTING A/O X 4.ON ROOM AIR ESTEPHANIE WELL,NO SOB/DISTRESS NOTED. NO IV ACCESS,CONTINUE ON CLINICAL TRIAL.VISUAL CHECK MAINTAIN, SAFETY MEASURE IN PLACE,CALL LIGHT WITHIN REACH. WILL CONTINUE TO MONITOR.
[2022-04-23 20:00] VITALS: BP 126/92
--- NOTE | 2022-04-24 07:11 | NUR ---
MS RN OPENING NOTES RECEIVED PATIENT AWAKE IN BED, A/Ox4, ABLE TO MAKE NEEDS KNOWN. ON ROOM AIR NO S/S OF RESPIRATORY DISTRESS. NO IV ACCES. AMBULATORY. SKIN INTACT. CLINICAL TRAIL. SAFETY MEASURES IN PLACE: BED LOCKED AND IN LOWEST POSITION, SIDE RAILS UPx3, CALL LIGHT WITHIN REACH, HOB ELEVATED. WILL CONTINUE TO MONITOR.
--- NOTE | 2022-04-24 07:38 | NUR ---
noc rn note needs attended. report given to shivani Cheatham for continuity of patient care.
[2022-04-24] MEDS: DEXILANT 60 MG PO SCH (07:48)
[2022-04-24 08:00] VITALS: BP 130/88
[2022-04-24] MEDS: INVEST MED CVL-231-2002 PO SCH (10:34)
--- NOTE | 2022-04-24 18:39 | NUR ---
MS RN CLOSING NOTES PATIENT AWAKE IN BED, A/Ox4, ABLE TO MAKE NEEDS KNOWN. STABLE ON ROOM AIR NO S/S OF RESPIRATORY DISTRESS. NO IV ACCESS. AMBULATORY. SKIN INTACT. CLINICAL TRAIL. SAFETY MEASURES IN PLACE: BED LOCKED AND IN LOWEST POSITION, SIDE RAILS UPx3, CALL LIGHT WITHIN REACH, HOB ELEVATED. WILL ENDORSE TO NEXT SHIFT ANY JULIUS.
--- NOTE | 2022-04-24 19:30 | NUR ---
noc rn opening Patient in room during kiersten report. Introduced myself and encouraged patient to verbalized any needs or concerns. will cont. with plan for patient.
--- NOTE | 2022-04-25 07:30 | NUR ---
RN Opening Note Patient AOx4 able to express his own concerns. Introduced myself to patient and made him aware of call light and plan of care, pt verbalized agreement. Patient up in room, watching a movie. No signs of distress of discomfort. Will continue to monitor throughout shift and provide care as needed.
--- NOTE | 2022-04-25 07:45 | NUR ---
noc rn note Needs attended. report given to shivani Beavers for continuity of care.
[2022-04-25 08:00] VITALS: BP_SYST 118; BP_SYST 165; BP_DIAS 78; BP_DIAS 81
[2022-04-25] MEDS: DEXILANT 60 MG PO SCH (08:00)
[2022-04-25] MEDS: INVEST MED CVL-231-2002 PO SCH (10:19)
[2022-04-25 16:00] VITALS: BP 146/81
--- NOTE | 2022-04-25 18:41 | NUR ---
RN Closing Note Patient AOx4 able to express his own concerns. Patient remained safe throughout shift. No issues throughout shift. No respiratory distress. Patient ambulated through unit safely, no unbalance was noted. All medications administered as ordered
--- NOTE | 2022-04-25 19:25 | NUR ---
MS RN OPENING NOTE RECEIVED PATIENT IN BED, SLEEPING; BUT EASILY BEING AROUSED. A/O X 4. PATIENT IS ON RA, NO S/S OF SOB OR DISTRESS; TOLERATED WELL. NO C/O PAIN OR DISCOMFORT. PATIENT IS CALM; HE DENIES OF HAVING ANY PSYCHIATRIC SYMPTOMS. SAFETY MEASURES IN PLACE. BED IN LOW AND LOCKED POSITION. SIDE RAILS UP X2. ADVISED THE PATIENT TO USE THE CALL LIGHT WHEN IN NEED. INSTRUCTED THE PATIENT TO REPORT ANY BEHAVIORAL OR THOUGHTS CHANGES. PATIENT VERBALIZED UNDERSTANDING. WILL CONTINUE MONITOR PATIENT'S CONDITION AND PROVIDE THE CARE PATIENT NEEDS THROUGHOUT THE SHIFT .
--- NOTE | 2022-04-26 07:10 | NUR ---
MS RN CLOSING NOTE PATIENT IS IN BED SLEEPING. EASILY BEING AROUSED. PATIENT IS ON RA, NO S/S OF SOB OR DISTRESS; TOLERATED WELL. NO C/O PAIN OR DISCOMFORT. PATIENT IS CALM; HE DENIES DENIES OF HAVING ANY BEHAVIORAL OR THOUGHTS CHANGES. MEDICATION AT 2100 WERE HELD PER MD ORDER ON 04/25/2022. SAFETY MEASURES IN PLACE. BED IN LOW AND LOCKED POSITION. SIDE RAILS UP X2. ADVISED THE PATIENT TO USE THE CALL LIGHT WHEN IN NEED. PATIENT PATIENT VERBALIZED UNDERSTANDING. WILL ENDORSE NEXT SHIFT NURSE FOR CONTINUE PATIENT CARE.
[2022-04-26] MEDS: DEXILANT 60 MG PO SCH (07:46)
[2022-04-26] MEDS: INVEST MED CVL-231-2002 PO SCH (09:53)
[2022-04-26] MEDS ORDERED: ZOLPIDEM TARTRATE 10 MG TABLET PO PRN (13:00)
[2022-04-26] MEDS: LORAZEPAM 1 MG TABLET FOR AGITATION PO PRN (17:19)
--- NOTE | 2022-04-26 19:45 | NUR ---
RN OPENING NOTE PATIENT AWAKE IN BED, ALERT/ORIENTED X 4, PT ABLE TO MAKE NEEDS KNOWN. PATIENT BREATHING AND UNLABORED, NO S/S OF DISTRESS OR SOB NOTED. PT STATES HE HAS NO NEEDS AT THIS TIME. PATIENT CALM. NO IV ACCESS D/T CLINICAL TRIAL STATUS. SAFETY MEASURES IN PLACE: CALL LIGHT WITHIN REACH, SIDE RAILS UP X 2, BED LOCKED IN LOW POSITION, WILL CONTINUE TO MONITOR PATIENT
[2022-04-26 20:00] VITALS: BP 147/96
--- NOTE | 2022-04-27 02:20 | NUR ---
RN NOTE WHILE THIS NURSE WAS ON LUNCH BREAK, PER CHARGE NURSE PATIENT HAD ARGUMENT WITH ROOMMATE, SECURITY WAS CALLED, PATIENT MOVED TO ROOM 325-2 WITH ALL BELONGINGS. WILL CONTINUE TO MONITOR
--- NOTE | 2022-04-27 07:00 | NUR ---
RN CLOSING NOTE PATIENT AWAKE IN ROOM, ALERT/ORIENTED X 4, PT ABLE TO MAKE NEEDS KNOWN. PATIENT BREATHING AND UNLABORED, NO S/S OF DISTRESS OR SOB NOTED. NO IV ACCESS D/T CLINICAL TRIAL STATUS. PATIENT NEEDS MET THROUGHOUT SHIFT. SAFETY MEASURES IN PLACE: CALL LIGHT WITHIN REACH, SIDE RAILS UP X 2, BED LOCKED IN LOW POSITION. ENDORSED TO DAYSHIFT RN FOR CONTINUITY OF CARE
[2022-04-27] MEDS: DEXILANT 60 MG PO SCH ×2 (07:30→07:48)
[2022-04-27] MEDS: INVEST MED CVL-231-2002 PO SCH ×3 (10:00→13:22)
[2022-04-27] MEDS: LORAZEPAM 1 MG TABLET FOR AGITATION PO PRN (17:31)
--- NOTE | 2022-04-27 20:52 | NUR ---
RN NOTE PT TRANSFERRED TO [facility] ROOM 216B. ALL PTS BELONGINGS ACCOUNTED FOR .REPORT GIVEN TO NURSE ROJAS.
--- NOTE | 2022-04-27 20:55 | NUR ---
GPS RN NOTE, RECEIVED PATIENT AWAKE AND IN BED, NO S/S OR COMPLAINTS OF PAIN AT THIS TIME. PATIENT IS DISPLAYING NO S/S OF APPARENT DISTRESS AT THIS TIME. PATIENT BREATHING IS UNLABORED WITH EQUAL RISE AND FALL OF THE CHEST. PATIENT IS ALERT AND ORIENTED X 3 ON ROOM AIR WITH A SPO2 98%. PATIENT IS COMPLIANT WITH MEDICATIONS, ANXIOUS, PARANOID, ISOLATIVE, POLITE, AND COOPERATIVE. PATIENT ASKING FOR AMBIEN AT THIS TIME BUT IT HAS ONLY BEEN THREE HOURS SINCE THE LAST TIME HE HAD ATIVAN. EDUCATED PATIENT THAT HE NEED TO WAIT 10HRS BETWEEN ADMINISTERING ATIVAN AND AMBIEN PER PROTOCOL. PATIENT UNDERSTOOD EDUCATION. PATIENT DENIES SUICIDAL AND HOMICIDAL IDEATIONS AT THIS TIME. PATIENT ASSISTED WITH TURNING AND REPOSITIONING Q2HR AND PRN FOR COMFORT AND CIRCULATION. PATIENT HAS NO NEEDS AT THIS TIME. PATIENT EDUCATED ON THE USE OF THE CALL LOMBARDI. PATIENT BED SIDE RAILS UP X 2 FOR SAFETY. PATIENT BED IS LOCKED AND LOW. WILL CONTINUE TO MONITOR THIS PATIENT Q15 MINUTES WITH THE HELP OF STAFF TO MAINTAIN SAFETY.
--- NOTE | 2022-04-28 07:05 | NUR ---
RN-NOTES PATIENT OFF THE UNIT AT THIS TIME PER NIGHT NURSE PATIENT LEFT THE UNIT AROUND 0630.
--- NOTE | 2022-04-28 08:01 | NUR ---
RN-NOTES PATIENT BACK IN THE UNIT A/O X3.
[2022-04-28] MEDS: DEXILANT 60 MG PO SCH (08:02)
[2022-04-28] MEDS: INVEST MED CVL-231-2002 PO SCH (10:01)
[2022-04-28 16:00] VITALS: BP 150/68
--- NOTE | 2022-04-28 19:01 | NUR ---
RN-NOTES PATIENT IN THE ROOM AWAKE A/O X4 LISTENING TO MUSIC WITH HIS PHONE,NO ACUTE DISTRESS NOTED.COMPLIANT WITH MEDICATIONS.PATIENT OFF THE UNIT SEVERAL TIME FOR SMOKING.WILL CONT.MONITORING FOR SAFETY AND BEHAVIOR.WILL ENDORSE TO INCOMING NURSE FOR CONTINUITY OF CARE.
--- NOTE | 2022-04-28 19:30 | NUR ---
GPS RN NOTE, RECEIVED PATIENT AWAKE AND IN BED, NO S/S OR COMPLAINTS OF PAIN AT THIS TIME. PATIENT IS DISPLAYING NO S/S OF APPARENT DISTRESS AT THIS TIME. PATIENT BREATHING IS UNLABORED WITH EQUAL RISE AND FALL OF THE CHEST. PATIENT IS ALERT AND ORIENTED X 3 ON ROOM AIR WITH A SPO2 98%. PATIENT IS COMPLIANT WITH MEDICATIONS, ANXIOUS, PARANOID, ISOLATIVE, POLITE, AND COOPERATIVE. PATIENT DENIES SUICIDAL AND HOMICIDAL IDEATIONS AT THIS TIME. PATIENT ASSISTED WITH TURNING AND REPOSITIONING Q2HR AND PRN FOR COMFORT AND CIRCULATION. PATIENT HAS NO NEEDS AT THIS TIME. PATIENT EDUCATED ON THE USE OF THE CALL LOMBARDI. PATIENT BED SIDE RAILS UP X 2 FOR SAFETY. PATIENT BED IS LOCKED AND LOW. WILL CONTINUE TO MONITOR THIS PATIENT Q15 MINUTES WITH THE HELP OF STAFF TO MAINTAIN SAFETY.
[2022-04-28 20:00] VITALS: BP 144/93
--- NOTE | 2022-04-29 07:15 | NUR ---
RN-NOTES RECEIVED PATIENT IN THE ROOM LYING IN BED AWAKE,A/O X4 LISTENING TO MUSIC,GUARDED,NO ACUTE DISTRESS NOTED.
[2022-04-29] MEDS: DEXILANT 60 MG PO SCH (07:40)
--- NOTE | 2022-04-29 07:55 | NUR ---
RN-NOTES PATIENT OFF THE UNIT FOR SMOKING.
[2022-04-29 08:00] VITALS: BP 152/96
--- NOTE | 2022-04-29 09:45 | NUR ---
RN-NOTES PATIENT BACK IN THE UNIT A/O X4. NO ACUTE DISTRESS NOTED.
[2022-04-29] MEDS: INVEST MED CVL-231-2002 PO SCH (10:13)
[2022-04-29 16:03] VITALS: BP 158/97
[2022-04-29] MEDS: LORAZEPAM 1 MG TABLET FOR AGITATION PO PRN (17:03)
--- NOTE | 2022-04-29 17:05 | NUR ---
RN-NOTES PATIENT REQUESTING ATIVAN. ATIVAN 1MG P.O GIVEN PRN ORDERED. WILL CONT. MONITORING FOR SAFETY AND BEHAVIOR.
--- NOTE | 2022-04-29 19:30 | NUR ---
GPS RN NOTE, PATIENT IS NOT IN HIS ROOM AND IS OUTSIDE OF THE HOSPITAL SMOKING AT THIS TIME. IT WAS ENDORSED TO ME BY A.M. SHIFT THAT HE LEFT THE FLOOR @1900.
[2022-04-29 20:00] VITALS: BP 142/104
[2022-04-30 08:00] VITALS: BP 144/94
[2022-04-30] MEDS: DEXILANT 60 MG PO SCH (08:37)
[2022-04-30] MEDS: INVEST MED CVL-231-2002 PO SCH (10:45)
[2022-04-30 16:00] VITALS: BP 142/81
[2022-04-30 20:14] VITALS: BP 133/77
--- NOTE | 2022-04-30 20:29 | NUR ---
RN note: RFeceived patient in bed awake,blunted affect,isolative,withdrawn,preoccupied to his own thought process.No s/s of adverse effect of medication noted.Will continue to monitor q15 min rounds for safety.
[2022-05-01] MEDS: DEXILANT 60 MG PO SCH ×2 (07:30→07:43)
--- NOTE | 2022-05-01 07:48 | NUR ---
RN NOTES RECEIVED PT AWAKE ALERT & ORIENTED X 3, ABLE TO FEED SELF AND MAKE NEEDS KNOWN, FOR SAFETY AND DUE TO SUICIDAL BEHAVIOR THE WRAPS ON BI-LATERAL HANDS AND WRIST CHANGED TO BOARDED GAUZE FOR PROTECTION AND INFECTION CONTROL OF WOUNDS, PT HAS SUICIDAL TENDENCIES AND WILL CONTINUE TO MONITOR CLOSELY , PT HAS A BLUNTED AFFECT, PT IS ISOLATED , NO SOB NO DISTRESS NOTED, NO ADVERSE EFFECTS NOTED TO MEDICATION, WILL MEET NEEDS IN A TIMELY MANNER AND ACCORDINGLY. ALL BED WHEELS LOCKED AND BED IN LOWEST POSITION FOR SAFETY MEASURES. Addendum: 05/01/22 at 0754 by FADI MILLER RN INCORRECT DOCUMENTATION ON PT ABOVE PLS DISREGARD CANCEL THE NOTES WERE MEANT FOR PT 215- BED B, ERROR ERROR ERROR.
[2022-05-01 08:00] VITALS: BP 134/86
[2022-05-01] MEDS: INVEST MED CVL-231-2002 PO SCH (10:00)
[2022-05-01 16:00] VITALS: BP 137/95
--- NOTE | 2022-05-01 19:05 | NUR ---
RN NOTES PT COMPLIANT AND ABLE TO TAKE CARE OF SELF AND ALL ADLS WITH NO ASSISTANCE, WENT TO STORE TO GET A SODA POP, RETURNED SAFELY, EDUCATED ON REASONS NOT TO SMOKE, UNDERSTOOD BUT STILL WANTS TO CONTINUE WITH SMOKING, COOPERATIVE AND POLITE AND IN ROOM SLEEPING ON AND OFF AT THIS TIME WATCHING TV.
[2022-05-01 19:49] VITALS: BP 149/95
[2022-05-01] MEDS: LORAZEPAM 1 MG TABLET FOR AGITATION PO PRN (19:58)
--- NOTE | 2022-05-02 | NUR ---
RN note; Patient is isolative ,withdrawn,unmotivated c/o anxiety,requested and given Ativan 1 mg PO with good effect.
--- NOTE | 2022-05-02 06:13 | NUR ---
RN note: Patient requested to smoke outside at 06:15.Informed him to comeback after smoking.
[2022-05-02 08:00] VITALS: BP 131/83
[2022-05-02] MEDS: INVEST MED CVL-231-2002 PO SCH (10:00)
--- NOTE | 2022-05-02 11:29 | NUR ---
RN-NOTES PATIENT JUST BACK IN THE UNIT AND TOOK 1000AM MEDICATION.
[2022-05-02 15:56] VITALS: BP 138/98
--- NOTE | 2022-05-02 18:35 | NUR ---
RN-NOTES PATIENT OFF THE UNIT AT THIS TIME A/O X4 NO ACUTE DISTRESS NOTED.COMPLIANT WITH MEDICATIONS.PATIENT OFF THE UNIT SEVERAL TIME FOR SMOKING.WILL CONT.MONITORING FOR SAFETY AND BEHAVIOR.WILL ENDORSE TO INCOMING NURSE FOR CONTINUITY OF CARE.
--- NOTE | 2022-05-02 20:05 | NUR ---
RN note: Patient came back from smoke break.No s/s of acute distress noted.Patient appears to be depressed,blunted affect,no verbalization of thoughts and feelings.Will continue to monitor q15 min rounds for safety.
[2022-05-03] MEDS: DEXILANT 60 MG PO SCH ×3 (07:30→10:18)
[2022-05-03 08:00] VITALS: BP 135/83
[2022-05-03] MEDS: INVEST MED CVL-231-2002 PO SCH ×3 (10:00→10:17)
--- NOTE | 2022-05-03 10:06 | NUR ---
RN-CO: PT IS OUT OF THE UNIT SINCE 07: 30 DUE TO BLOOD EXAM AND WENT TO DR CRUZ'S OFFICE.
--- NOTE | 2022-05-03 10:08 | NUR ---
RN-CO: PT IS STILL NOT IN THE UNIT. INVESTIGATIONAL MEDICATIONS WAS NOT GIVEN ON TIME.
[2022-05-03] MEDS ORDERED: ZOLPIDEM TARTRATE 10 MG TABLET PO PRN (13:00)
--- NOTE | 2022-05-03 13:31 | NUR ---
RN-CO: Patient denied pain and discomforts. He stated he is hearing voices but refused to disclose.
[2022-05-03 16:00] VITALS: BP 129/77
[2022-05-03] MEDS: LORAZEPAM 1 MG TABLET FOR AGITATION PO PRN (16:24)
--- NOTE | 2022-05-03 16:25 | NUR ---
RN-CO: ATIVAN 1 MG PO REQUESTED FOR C/O ANXIETY M/B RESTLESSNESS.
[2022-05-03 19:46] VITALS: BP 139/89
[2022-05-04] MEDS: DEXILANT 60 MG PO SCH (07:39)
[2022-05-04 08:00] VITALS: BP 146/91
[2022-05-04] MEDS: INVEST MED CVL-231-2002 PO SCH (09:56)
--- NOTE | 2022-05-04 10:00 | NUR ---
RN Notes: Received pt. awake in bed, in a phone. Responsive to staffs, no distress and no agitation noted. Ate 100% for breakfast and compliant on meds including the investigational med. Encouraged to verbalize feelings and motivated to attend group activity. Pt. step out in the unit to smoke, needs attended and will continue to monitor for safety.
[2022-05-04 17:52] VITALS: BP 141/102
--- NOTE | 2022-05-04 17:56 | NUR ---
Dr. Baumann made aware of the BP of 141/102 and DC 82 and said to monitor for the next 24 hrs.
--- NOTE | 2022-05-04 19:30 | NUR ---
GPS RN NOTE, RECEIVED PATIENT AWAKE AND IN BED, NO S/S OR COMPLAINTS OF PAIN AT THIS TIME. PATIENT IS DISPLAYING NO S/S OF APPARENT DISTRESS AT THIS TIME. PATIENT BREATHING IS UNLABORED WITH EQUAL RISE AND FALL OF THE CHEST. PATIENT IS ALERT AND ORIENTED X 3 ON ROOM AIR WITH A SPO2 97%. PATIENT IS COMPLIANT WITH MEDICATIONS, ANXIOUS, PARANOID, ISOLATIVE, POLITE, AND COOPERATIVE. PATIENT DENIES SUICIDAL AND HOMICIDAL IDEATIONS AT THIS TIME. PATIENT ASSISTED WITH TURNING AND REPOSITIONING Q2HR AND PRN FOR COMFORT AND CIRCULATION. PATIENT HAS NO NEEDS AT THIS TIME. PATIENT EDUCATED ON THE USE OF THE CALL LOMBADRI. PATIENT BED SIDE RAILS UP X 2 FOR SAFETY. PATIENT BED IS LOCKED AND LOW. WILL CONTINUE TO MONITOR THIS PATIENT Q15 MINUTES WITH THE HELP OF STAFF TO MAINTAIN SAFETY.
[2022-05-04] MEDS: LORAZEPAM 1 MG TABLET FOR AGITATION PO PRN (19:36)
--- NOTE | 2022-05-04 19:37 | NUR ---
GPS RN NOTE, PATIENT HAS A COMPLAINT OF FEELING ANXIOUS AND IS REQUESTING ATIVAN AT THIS TIME. PATIENT VITAL SIGNS ARE STABLE. GAVE ATIVAN 1MG PO Q6HR PRN ORDERED. WILL REASSESS FOR ANXIETY AND I WILL CONTINUE TO MONITOR THIS PATIENT WITH THE HELP OF STAFF.
[2022-05-04 20:00] VITALS: BP 136/87
[2022-05-05] MEDS: DEXILANT 60 MG PO SCH (07:45)
[2022-05-05 08:00] VITALS: BP 135/89
[2022-05-05] MEDS: INVEST MED CVL-231-2002 PO SCH (10:05)
--- NOTE | 2022-05-05 10:10 | NUR ---
RN Notes: Received pt. asleep in bed, breathing is even and unlabored. Ate 100% for breakfast, compliant on meds including the investigational med. Pt. stayed in room most of the time. No distress and no agitation noted. Needs attended and will continue to monitor for safety.
--- NOTE | 2022-05-05 12:16 | NUR ---
Pt. step out in the unit at 10:20AM and until this time pt. is not here.
--- NOTE | 2022-05-05 12:28 | NUR ---
Pt. came back with no distress and no agitation noted.
[2022-05-05 16:00] VITALS: BP 137/90
--- NOTE | 2022-05-05 19:30 | NUR ---
GPS RN NOTE, RECEIVED PATIENT AWAKE AND IN BED, NO S/S OR COMPLAINTS OF PAIN AT THIS TIME. PATIENT IS DISPLAYING NO S/S OF APPARENT DISTRESS AT THIS TIME. PATIENT BREATHING IS UNLABORED WITH EQUAL RISE AND FALL OF THE CHEST. PATIENT IS ALERT AND ORIENTED X 3 ON ROOM AIR WITH A SPO2 96%. PATIENT IS COMPLIANT WITH MEDICATIONS, ANXIOUS, PARANOID, ISOLATIVE, POLITE, AND COOPERATIVE. PATIENT DENIES SUICIDAL AND HOMICIDAL IDEATIONS AT THIS TIME. PATIENT ASSISTED WITH TURNING AND REPOSITIONING Q2HR AND PRN FOR COMFORT AND CIRCULATION. PATIENT HAS NO NEEDS AT THIS TIME. PATIENT EDUCATED ON THE USE OF THE CALL LOMBARDI. PATIENT BED SIDE RAILS UP X 2 FOR SAFETY. PATIENT BED IS LOCKED AND LOW. WILL CONTINUE TO MONITOR THIS PATIENT Q15 MINUTES WITH THE HELP OF STAFF TO MAINTAIN SAFETY.
[2022-05-05 20:00] VITALS: BP 138/81
[2022-05-06] MEDS: LORAZEPAM 1 MG TABLET FOR AGITATION PO PRN ×2 (01:48→20:13)
[2022-05-06 08:00] VITALS: BP 143/99
[2022-05-06] MEDS: DEXILANT 60 MG PO SCH (08:26)
[2022-05-06] MEDS: INVEST MED CVL-231-2002 PO SCH (10:28)
[2022-05-06 16:00] VITALS: BP 128/85
--- NOTE | 2022-05-06 19:30 | NUR ---
[facility] RN NOTE, RECEIVED PATIENT AWAKE AND IN BED, NO S/S OR COMPLAINTS OF PAIN AT THIS TIME. PATIENT IS DISPLAYING NO S/S OF APPARENT DISTRESS AT THIS TIME. PATIENT BREATHING IS UNLABORED WITH EQUAL RISE AND FALL OF THE CHEST. PATIENT IS ALERT AND ORIENTED X 3 ON ROOM AIR WITH A SPO2 99%. PATIENT IS COMPLIANT WITH MEDICATIONS, ANXIOUS, PARANOID, ISOLATIVE, POLITE, AND COOPERATIVE. PATIENT DENIES SUICIDAL AND HOMICIDAL IDEATIONS AT THIS TIME. PATIENT ASSISTED WITH TURNING AND REPOSITIONING Q2HR AND PRN FOR COMFORT AND CIRCULATION. PATIENT HAS NO NEEDS AT THIS TIME. PATIENT EDUCATED ON THE USE OF THE CALL LOMBARDI. PATIENT BED SIDE RAILS UP X 2 FOR SAFETY. PATIENT BED IS LOCKED AND LOW. WILL CONTINUE TO MONITOR THIS PATIENT Q15 MINUTES WITH THE HELP OF STAFF TO MAINTAIN SAFETY.
[2022-05-06 20:24] VITALS: BP 129/86
[2022-05-07] MEDS: DEXILANT 60 MG PO SCH (07:53)
[2022-05-07 08:00] VITALS: BP 118/76
[2022-05-07] MEDS: INVEST MED CVL-231-2002 PO SCH (10:07)
[2022-05-07 16:00] VITALS: BP 145/86
--- NOTE | 2022-05-07 20:23 | NUR ---
RN note: Patient appears to be unmotivated ,isolative,withdrawn,no verbalization of thoughts and feelings,preoccupied to his own thought process.No s/s of acute distress noted.Will continue to monitor q15 min rounds for safety.
[2022-05-07 20:44] VITALS: BP 138/80
[2022-05-08] MEDS: DEXILANT 60 MG PO SCH (07:45)
[2022-05-08 08:00] VITALS: BP 138/87
[2022-05-08] MEDS: INVEST MED CVL-231-2002 PO SCH (09:57)
--- NOTE | 2022-05-08 10:45 | NUR ---
RN-CO: RECEIVED PATIENT RESTING IN HIS ROOM A/O X3-4 CALM, NO ACUTE DISTRESS NOTED. COMPLIANT WITH MEDICATIONS. ALL NEEDS ATTENDED AND ANTICIPATED. WILL CONT. MONITORING Q15MIN FOR SAFETY AND BEHAVIOR.
[2022-05-08 16:00] VITALS: BP 133/85
--- NOTE | 2022-05-08 19:51 | NUR ---
RN Note: Patient was not in his room during change of shift report.Patient went outside to smoke.
--- NOTE | 2022-05-08 19:53 | NUR ---
RN note: Patient came back from smoking ,alert,oriented x 4 ,no s/s of acute distress noted.Explained to patient that will be NPO after 21:00 tonight but water and study medication are ok.Patient verbalized understanding.
[2022-05-08 20:31] VITALS: BP 139/87
[2022-05-09] MEDS: DEXILANT 60 MG PO SCH (07:48)
[2022-05-09 08:00] VITALS: BP 135/89
--- NOTE | 2022-05-09 08:50 | NUR ---
RN-NOTES PATIENT OFF THE UNIT FOR DR. CRUZ'S OFFICE FOR LAB DRAW.
[2022-05-09] MEDS: INVEST MED CVL-231-2002 PO SCH (10:29)
--- NOTE | 2022-05-09 10:29 | NUR ---
RN-NOTES PATIENT JUST BACK IN THE UNIT FROM DR. CRUZ'S OFFICE. IN STABLE CONDITION.
[2022-05-09] MEDS ORDERED: ZOLPIDEM TARTRATE 10 MG TABLET PO PRN (13:00)
[2022-05-09 16:00] VITALS: BP 151/95
[2022-05-09 20:53] VITALS: BP 143/86
[2022-05-10] MEDS: DEXILANT 60 MG PO SCH (07:57)
[2022-05-10 08:00] VITALS: BP 140/83
[2022-05-10] MEDS: INVEST MED CVL-231-2002 PO SCH (10:02)
--- NOTE | 2022-05-10 15:31 | NUR ---
RN-CO: PT DENIED THAT HE IS HAVING SIDE EFFECTS FROM THE INVESTIGATIONAL MEDICATIONS. HOWEVER, HE STATED THAT HE STILL HAS AUDITORY AND VISUAL HALLUCINATIONS. HE REFUSED TO ELABORATE FURTHER. I NOTICED THAT IF HE GOES OUT OF THE UNIT, HE IS TAKING AROUND 1-3 HOURS TO COME BACK. I WILL NOTIFY DR CRUZ.
[2022-05-10 16:00] VITALS: BP 140/90
--- NOTE | 2022-05-10 19:38 | NUR ---
RN-NOTES PATIENT IN THE ROOM AWAKE A/O X4 LISTENING TO MUSIC WITH HIS PHONE,NO ACUTE DISTRESS NOTEd,WILL CONT.MONITORING FOR SAFETY AND BEHAVIOR.WILL CONTINUE TO MONITOR.
[2022-05-10 19:57] VITALS: BP 130/82
[2022-05-11] MEDS: DEXILANT 60 MG PO SCH (07:42)
[2022-05-11 08:00] VITALS: BP 117/70
[2022-05-11] MEDS: INVEST MED CVL-231-2002 PO SCH (10:00)
--- NOTE | 2022-05-11 12:30 | NUR ---
RN-NOTES PATIENT OFF THE UNIT FOR SMOKING.
[2022-05-11 16:00] VITALS: BP 138/64
--- NOTE | 2022-05-11 19:51 | NUR ---
RN-NOTES PATIENT RESTING IN THE ROOM AWAKE A/O X3, EASILY AGITATED, PARANOID , MAKES TO NEEDS KNOWN, LISTENING TO MUSIC WITH HIS PHONE,NO ACUTE DISTRESS NOTED, ENCOURAGED TO VERBALIZED ANY FEELING OR CONCERN ,WILL CONTINUE TO MONITORING FOR SAFETY AND BEHAVIOR.
[2022-05-11 20:00] VITALS: BP 139/75
[2022-05-12] MEDS: DEXILANT 60 MG PO SCH (07:40)
[2022-05-12 08:00] VITALS: BP 130/80
[2022-05-12] MEDS: INVEST MED CVL-231-2002 PO SCH (09:55)
--- NOTE | 2022-05-12 10:00 | NUR ---
RN Notes: Received pt. bed in bed, no distress and no agitation noted. Ate 100% for breakfast, compliant on meds including the investigational med. Pt. stayed in room most of the time. No distress and no agitation noted. Needs attended and will continue to monitor for safety.
--- NOTE | 2022-05-12 11:10 | NUR ---
Pt. went out from the unit and being picked up by Dr. Baumann's staff. Left without distress and no agitation noted.
[2022-05-12 16:00] VITALS: BP 124/93
[2022-05-12 20:00] VITALS: BP 136/86
[2022-05-13] MEDS: DEXILANT 60 MG PO SCH (07:25)
[2022-05-13 08:00] VITALS: BP 131/87
[2022-05-13] MEDS: INVEST MED CVL-231-2002 PO SCH (09:58)
--- NOTE | 2022-05-13 10:00 | NUR ---
RN Notes: Received pt. awake bed in bed, no distress and no agitation noted. Ate 100% for breakfast, compliant on meds including the investigational med. Pt. stayed in room most of the time. No distress and no agitation noted. Needs attended and will continue to monitor for safety.
[2022-05-13 16:00] VITALS: BP 123/94
--- NOTE | 2022-05-13 18:10 | NUR ---
Pt. is anxious and telling the staffs that he is hearing voices and the voices telling something stupid. Pt. said he is not on meds in days. The rental car ferry driver's heard pt. from the room telling that he will pour gas to somebody else but particular name mentioned. Dr. Baumann made aware and ordered to given po Ativan po prn. Addendum: 05/13/22 at 1827 by JUAN JOSÉ BUTCHER RN No particular name or person mentioned.
[2022-05-13] MEDS ORDERED: LORAZEPAM 1 MG TABLET ONE (18:11)
[2022-05-13] MEDS: LORAZEPAM 1 MG TABLET FOR AGITATION PO PRN (18:12)
--- NOTE | 2022-05-13 18:55 | NUR ---
Pt. is calm at this time and denied plan of hurting anybody and denied plan hurting himself. Will continue to monitor. Addendum: 05/13/22 at 1909 by JUAN JOSÉ BUTCHER RN Denied plan of hurting himself
--- NOTE | 2022-05-13 19:53 | NUR ---
RN-NOTES: PATIENT RESTING IN THE ROOM AWAKE A/O X3, EASILY AGITATED, PARANOID , DENIES SI HI AT THIS TIME ,MAKES TO NEEDS KNOWN, LISTENING TO MUSIC WITH HIS PHONE,NO ACUTE DISTRESS NOTED, ENCOURAGED TO VERBALIZED ANY FEELING OR CONCERN ,WILL CONTINUE TO MONITORING FOR SAFETY AND BEHAVIOR.
[2022-05-13 20:42] VITALS: BP 137/96
--- NOTE | 2022-05-14 05:59 | NUR ---
RN NOTES: PT. SLEPT 8 HOURS OF SLEEP , THROUGH OUT IN SHIFT CALM COOPERATIVE NO BEHAVIOR PROBLEMS NOTED, DENIES SI/HI , WILL CONTINUE TO MONITOR.
[2022-05-14] MEDS: DEXILANT 60 MG PO SCH (07:52)
[2022-05-14 08:00] VITALS: BP 124/76
[2022-05-14] MEDS: INVEST MED CVL-231-2002 PO SCH (10:00)
[2022-05-14 16:00] VITALS: BP 130/80
[2022-05-14] MEDS: LORAZEPAM 1 MG TABLET FOR AGITATION PO PRN (18:17)
--- NOTE | 2022-05-14 18:17 | NUR ---
NURSE NOTE: PER PT HE IS FEELING ANXIOUS, REQUESTED ATIVAN BECAUSE IT HELPED HIM THE PREVIOUS DAY. ATIVAN ADMINISTERED ORDERED. PT ESTEPHANIE WELL. WILL CONT TO MONITOR.
--- NOTE | 2022-05-14 19:23 | NUR ---
RN NOTE RECEIVED PATIENT IN HIS ROOM RESTING IN BED COMFORTABLY. PT IS LISTENING TO MUSIC WITH HIS PHONE. ALERT AND ORIENTED X3. ABLE TO MAKE NEEDS KNOWN. PATIENT IS CALM UPON APPROACH, BLUNTED AFFECT, GUARDED. DENIES SI/HI/AVH AT THIS TIME. PATIENT IS ON INVESTIGATIONAL MEDS WITH NO ADVERSE REACTIONS NOTED. SAFETY PRECAUTIONS MAINTAINED. WILL CONTINUE TO MONITOR Q15MIN ROUNDS FOR SAFETY AND BEHAVIOR.
[2022-05-14 20:56] VITALS: BP 142/87
[2022-05-15] MEDS: DEXILANT 60 MG PO SCH (07:46)
[2022-05-15 08:00] VITALS: BP 130/81
[2022-05-15] MEDS: INVEST MED CVL-231-2002 PO SCH (09:55)
--- NOTE | 2022-05-15 10:23 | NUR ---
RN-CO: Patient denies pain and discomforts. Goes out for smoke and go somewhere else. He denied having bad side effects from the investigational medication nor adverse reaction. He stated he still hearing voices but refused to elaborate. He does not participate in group activities but he listens to music. I will continue to monitor.
[2022-05-15 16:00] VITALS: BP 135/92
[2022-05-15 21:38] VITALS: BP 141/87
--- NOTE | 2022-05-16 03:22 | NUR ---
RN note: Patient is isolative,withdrawn ,unmotivated ,no s/s of acute distress noted.Denies SI/HI at this time.Will continue to monitor q15 min rounds for safety.
[2022-05-16] MEDS: DEXILANT 60 MG PO SCH (07:57)
--- NOTE | 2022-05-16 07:59 | NUR ---
RN-NOTES RECEIVED PATIENT IN THE ROOM LYING IN BED AWAKE,A/O X4 LISTENING TO MUSIC,GUARDED,NO ACUTE DISTRESS NOTED.
[2022-05-16 08:00] VITALS: BP 151/102
--- NOTE | 2022-05-16 09:10 | NUR ---
RN-NOTES PATIENT OFF THE UNIT FOR SMOKING,IN STABLE CONDITION.
--- NOTE | 2022-05-16 10:10 | NUR ---
RN-NOTES PATIENT BACK IN THE UNIT IN STABLE CONDITION.
[2022-05-16] MEDS: INVEST MED CVL-231-2002 PO SCH (10:20)
[2022-05-16] MEDS: LORAZEPAM 1 MG TABLET FOR AGITATION PO PRN (11:12)
--- NOTE | 2022-05-16 11:18 | NUR ---
RN-NOTES PATIENT REQUESTING ATIVAN FOR ANXIETY, ATIVAN 1MG P.O GIVEN PRN ORDER.
--- NOTE | 2022-05-16 12:20 | NUR ---
RN-NOTES PATIENT IN THE ROOM LYING IN BED LISTENING TO THE RADIO,CALM NO ACUTE DISTRESS NOTED.
--- NOTE | 2022-05-16 13:10 | NUR ---
RN-NOTES PATIENT IS BACK IN THE UNIT A/OX 4 ,NO ACUTE DISTRESS NOTED.
[2022-05-16 16:08] VITALS: BP 135/79
[2022-05-16 19:30] VITALS: BP 135/94
--- NOTE | 2022-05-17 06:03 | NUR ---
RN note: 03:00 :Patient was overheard screaming ,yelling inside his room and when staff assess him ,he did not verbalize what triggers his yelling and screaming instead he pointed his fingers towards the wall and stating "bang....bang...bang....Patient was redirected and he stop screaming and yelling .He went to bed after offering him juice to drink.Will continue to monitor q15 min rounds for safety. 06:00:Patient noted mumbling ,talking to self,appears to be preoccupied to his own thought process.Remains isolative ,withdrawn,no social interactions,paranoid and guarded.Will continue to monitor q15 min rounds for safety.
[2022-05-17] MEDS: DEXILANT 60 MG PO SCH (07:57)
[2022-05-17 08:00] VITALS: BP 135/84
[2022-05-17] MEDS: INVEST MED CVL-231-2002 PO SCH ×2 (09:52→10:00)
--- NOTE | 2022-05-17 10:43 | NUR ---
RN-CO: PATIENT WAS SEEN AND EXAMINED BY DR CRUZ AT 0950 AM, NOTIFIED THAT HE IS MUMBLING AND DOING A "SHOOTING GESTURE" AT THE WALL. HE TOOK HIS MEDICATIONS AND WENT TO DR CRUZ'S OFFICE AFTERWARDS.
[2022-05-17] MEDS ORDERED: ZOLPIDEM TARTRATE 10 MG TABLET PO PRN (13:00)
[2022-05-17 16:00] VITALS: BP 140/93
[2022-05-17] MEDS: LORAZEPAM 1 MG TABLET FOR AGITATION PO PRN (18:10)
--- NOTE | 2022-05-17 18:10 | NUR ---
RN-CO: ATIVAN 1 MG PO GIVEN FOR C/O ANXIETY.
--- NOTE | 2022-05-17 19:32 | NUR ---
GPS RN NOTE, RECEIVED PATIENT AWAKE AND IN BED, NO S/S OR COMPLAINTS OF PAIN AT THIS TIME. PATIENT IS DISPLAYING NO S/S OF APPARENT DISTRESS AT THIS TIME. PATIENT BREATHING IS UNLABORED WITH EQUAL RISE AND FALL OF THE CHEST. PATIENT IS ALERT AND ORIENTED X 3 ON ROOM AIR WITH A SPO2 96%. PATIENT IS COMPLIANT WITH MEDICATIONS, ANXIOUS, PARANOID, ISOLATIVE, POLITE, AND COOPERATIVE. PATIENT IS RESPONDING TO INTERNAL STIMULI. PATIENT DENIES SUICIDAL AND HOMICIDAL IDEATIONS AT THIS TIME. PATIENT ASSISTED WITH TURNING AND REPOSITIONING Q2HR AND PRN FOR COMFORT AND CIRCULATION. PATIENT HAS NO NEEDS AT THIS TIME. PATIENT EDUCATED ON THE USE OF THE CALL LOMBARDI. PATIENT BED SIDE RAILS UP X 2 FOR SAFETY. PATIENT BED IS LOCKED AND LOW. WILL CONTINUE TO MONITOR THIS PATIENT Q15 MINUTES WITH THE HELP OF STAFF TO MAINTAIN SAFETY.
[2022-05-17 19:54] VITALS: BP 146/85
[2022-05-18] MEDS: DEXILANT 60 MG PO SCH (07:34)
[2022-05-18 08:00] VITALS: BP 134/79
[2022-05-18] MEDS: INVEST MED CVL-231-2002 PO SCH (10:08)
--- NOTE | 2022-05-18 10:10 | NUR ---
RN Notes: Received pt. awake in bed, no distress and no agitation noted. Ate 100% for breakfast, compliant on meds including the investigational med. Pt. stayed in room most of the time. No distress and no agitation noted. Needs attended and will continue to monitor for safety.
[2022-05-18 16:00] VITALS: BP 159/93
--- NOTE | 2022-05-18 19:30 | NUR ---
GPS RN NOTE, RECEIVED PATIENT AWAKE AND IN BED, NO S/S OR COMPLAINTS OF PAIN AT THIS TIME. PATIENT IS DISPLAYING NO S/S OF APPARENT DISTRESS AT THIS TIME. PATIENT BREATHING IS UNLABORED WITH EQUAL RISE AND FALL OF THE CHEST. PATIENT IS ALERT AND ORIENTED X 3 ON ROOM AIR WITH A SPO2 99%. PATIENT IS COMPLIANT WITH MEDICATIONS, ANXIOUS, PARANOID, ISOLATIVE, POLITE, AND COOPERATIVE. PATIENT IS RESPONDING TO INTERNAL STIMULI. PATIENT DENIES SUICIDAL AND HOMICIDAL IDEATIONS AT THIS TIME. PATIENT ASSISTED WITH TURNING AND REPOSITIONING Q2HR AND PRN FOR COMFORT AND CIRCULATION. PATIENT HAS NO NEEDS AT THIS TIME. PATIENT EDUCATED ON THE USE OF THE CALL LOMBARDI. PATIENT BED SIDE RAILS UP X 2 FOR SAFETY. PATIENT BED IS LOCKED AND LOW. WILL CONTINUE TO MONITOR THIS PATIENT Q15 MINUTES WITH THE HELP OF STAFF TO MAINTAIN SAFETY.
[2022-05-18 20:00] VITALS: BP 151/100
[2022-05-18] MEDS: LORAZEPAM 1 MG TABLET FOR AGITATION PO PRN (22:59)
[2022-05-19] MEDS: DEXILANT 60 MG PO SCH (08:25)
[2022-05-19 08:30] VITALS: BP 148/93
[2022-05-19] MEDS: INVEST MED CVL-231-2002 PO SCH (10:02)
--- NOTE | 2022-05-19 10:15 | NUR ---
RN Notes: Pt. ate 100% for breakfast and compliant on meds including investigational med. Pt. went outside for smoking. Encouraged to verbalize feelings and motivated to attend group activity. Needs attended and will continue to monitor for safety.
[2022-05-19 16:00] VITALS: BP 136/99
--- NOTE | 2022-05-19 19:30 | NUR ---
GPS RN NOTE, RECEIVED PATIENT AWAKE AND IN BED, NO S/S OR COMPLAINTS OF PAIN AT THIS TIME. PATIENT IS DISPLAYING NO S/S OF APPARENT DISTRESS AT THIS TIME. PATIENT BREATHING IS UNLABORED WITH EQUAL RISE AND FALL OF THE CHEST. PATIENT IS ALERT AND ORIENTED X 3 ON ROOM AIR WITH A SPO2 98%. PATIENT IS COMPLIANT WITH MEDICATIONS, ANXIOUS, PARANOID, ISOLATIVE, POLITE, AND COOPERATIVE. PATIENT IS RESPONDING TO INTERNAL STIMULI. PATIENT DENIES SUICIDAL AND HOMICIDAL IDEATIONS AT THIS TIME. PATIENT ASSISTED WITH TURNING AND REPOSITIONING Q2HR AND PRN FOR COMFORT AND CIRCULATION. PATIENT HAS NO NEEDS AT THIS TIME. PATIENT EDUCATED ON THE USE OF THE CALL LOMBARDI. PATIENT BED SIDE RAILS UP X 2 FOR SAFETY. PATIENT BED IS LOCKED AND LOW. WILL CONTINUE TO MONITOR THIS PATIENT Q15 MINUTES WITH THE HELP OF STAFF TO MAINTAIN SAFETY.
[2022-05-19] MEDS: LORAZEPAM 1 MG TABLET FOR AGITATION PO PRN (19:45)
[2022-05-19 20:00] VITALS: BP 145/93
[2022-05-20] MEDS: MAG HYDROX/AL HYDROX/SIMETH 30 ML UDC PO PRN (06:17)
--- NOTE | 2022-05-20 06:17 | NUR ---
GPS RN NOTE, PATIENT HAS A COMPLAINT OF INDIGESTION AND IS REQUESTING MAALOX AT THIS TIME. GAVE MAALOX 30 ML 1 UNIT DOSE PRN ORDERED. WILL REASSESS AND I WILL CONTINUE TO MONITOR THIS PATIENT WITH THE HELP OF STAFF.
[2022-05-20] MEDS: DEXILANT 60 MG PO SCH (07:29)
[2022-05-20 08:00] VITALS: BP 153/85
[2022-05-20] MEDS: INVEST MED CVL-231-2002 PO SCH (09:58)
--- NOTE | 2022-05-20 10:10 | NUR ---
RN Notes: Received pt. awake in his bed, responsive to staffs, no distress and no agitation noted. Ate 100% for breakfast and compliant on meds including the investigational med. Needs attended and will continue to monitor for safety.
[2022-05-20 16:31] VITALS: BP 145/99
[2022-05-20 20:17] VITALS: BP 140/98
--- NOTE | 2022-05-20 21:35 | NUR ---
RN note: Received patient awake,isolative,withdrawn noted mumbling,talking to self,preoccupied to his own thought process.No s/s of acute distress noted.Will continue to monitor q15 min rounds for safety.
[2022-05-21 08:00] VITALS: BP 139/95
[2022-05-21] MEDS: DEXILANT 60 MG PO SCH (08:01)
--- NOTE | 2022-05-21 09:47 | NUR ---
RN-CO:Patient denied pain and discomforts. Showered today, easily irritated. Denied side effect from investigational medicine. Goes out for smoke. I will continue to monitor.
[2022-05-21] MEDS: INVEST MED CVL-231-2002 PO SCH (09:58)
[2022-05-21 20:35] VITALS: BP 135/85
--- NOTE | 2022-05-22 04:15 | NUR ---
RN Note: Patient isolative ,appears to be depressed,blunted affect,labile and unpredictable.Denies SI/HI at time.Will continue to monitor q15 min rounds for safety.
[2022-05-22] MEDS: DEXILANT 60 MG PO SCH (07:56)
[2022-05-22 08:00] VITALS: BP 123/77
[2022-05-22] MEDS: INVEST MED CVL-231-2002 PO SCH (10:03)
[2022-05-22 16:00] VITALS: BP 135/97
[2022-05-22 20:40] VITALS: BP 151/92
--- NOTE | 2022-05-23 06:51 | NUR ---
R NOte: Patient remains isolative,unmotivated,preoccupied to his own thought process,blunted affect,no s/s of acute distress noted.Will continue to monitor q15 min rounds for safety.
[2022-05-23 08:00] VITALS: BP 141/95
[2022-05-23] MEDS: DEXILANT 60 MG PO SCH (08:06)
--- NOTE | 2022-05-23 09:30 | NUR ---
RN-CO: Patient denied pain and discomforts. Showered today, easily irritated. Denied side effect from investigational medicine. Goes out for smoke. I will continue to monitor.
[2022-05-23] MEDS: INVEST MED CVL-231-2002 PO SCH (09:59)
[2022-05-23 16:00] VITALS: BP 139/99
[2022-05-23 20:30] VITALS: BP 139/95
--- NOTE | 2022-05-24 05:23 | NUR ---
RN note: Patient noted awake,mumbling,talking to self,guarded and paranoid upon approach.No s/s of acute distress noted.Will continue to monitor q15 min rounds for safety.
--- NOTE | 2022-05-24 06:20 | NUR ---
RN note: Patient step out for cigarette break.Informed patient that he is still NPO for blood draw .Patient verbalized understanding.
--- NOTE | 2022-05-24 06:59 | NUR ---
Patient came back from smoking outside.
[2022-05-24] MEDS: DEXILANT 60 MG PO SCH (07:36)
[2022-05-24 08:00] VITALS: BP 131/87
[2022-05-24] MEDS: INVEST MED CVL-231-2002 PO SCH (10:04)
--- NOTE | 2022-05-24 10:16 | NUR ---
NURSE NOTE: PT LEFT THE FLOOR AT THIS TIME FOR APPT WITH DR CRZU. WILL CONT TO MONITOR.
--- NOTE | 2022-05-24 12:00 | NUR ---
NURSE NOTE: PT RETURNED TO FLOOR AT THIS TIME. WILL CONT TO MONITOR.
[2022-05-24] MEDS ORDERED: ZOLPIDEM TARTRATE 10 MG TABLET PO PRN (13:00)
[2022-05-24 16:00] VITALS: BP 130/80
--- NOTE | 2022-05-24 17:03 | NUR ---
NURSE NOTE: PT PACING IN ROOM, LISTENING TO MUSIC LOUDLY, AGITATED/UPSET AT THIS TIME. ATIVAN PO ADMINISTERED ORDERED. PT ESTEPHANIE WELL. WILL CONT TO MONITOR.
[2022-05-24] MEDS: LORAZEPAM 1 MG TABLET FOR AGITATION PO PRN (17:04)
--- NOTE | 2022-05-24 18:03 | NUR ---
NURSE NOTE: PT LEFT THE FLOOR TO SMOKE. PT LEFT AT AT 1747. CALM AT THIS TIME. WILL ENDORSE TO NIGHTSHIFT TO F/U.
--- NOTE | 2022-05-24 18:48 | NUR ---
NURSE NOTE: PT RETURNED TO FLOOR AT THIS TIME. WILL CONT TO MONITOR.
[2022-05-24 19:51] VITALS: BP 137/86
[2022-05-25] MEDS: DEXILANT 60 MG PO SCH (07:48)
[2022-05-25 08:00] VITALS: BP 144/87
[2022-05-25] MEDS: INVEST MED CVL-231-2002 PO SCH (09:58)
[2022-05-25 17:00] VITALS: BP 131/97
--- NOTE | 2022-05-25 20:05 | NUR ---
RN NOTES : Patient came back from smoking outside.
[2022-05-25 20:30] VITALS: BP 130/74
[2022-05-26 08:00] VITALS: BP 157/86
[2022-05-26] MEDS: DEXILANT 60 MG PO SCH (08:04)
[2022-05-26] MEDS: INVEST MED CVL-231-2002 PO SCH (09:55)
[2022-05-26 16:00] VITALS: BP 138/81
[2022-05-26] MEDS: LORAZEPAM 1 MG TABLET FOR AGITATION PO PRN (20:07)
[2022-05-26 20:22] VITALS: BP 140/78
[2022-05-27 08:00] VITALS: BP 149/98
[2022-05-27] MEDS: DEXILANT 60 MG PO SCH (08:23)
[2022-05-27 08:30] VITALS: BP 149/98
[2022-05-27] MEDS: INVEST MED CVL-231-2002 PO SCH (09:57)
--- NOTE | 2022-05-27 09:59 | NUR ---
RN Notes: Pt. ate 100% for lunch and compliant on meds including the investigational meds. In the beginning of the shift pt. was out from the unit and came back at 8:20 AM. Needs attended, no distress and no agitation noted. Will continue to monitor for safety.
[2022-05-27 17:53] VITALS: BP 136/85
--- NOTE | 2022-05-27 19:30 | NUR ---
GPS RN NOTE, PATIENT IS NOT IN ROOM AND IS OUT SMOKING. LEFT FLOOR AT 1835 AND HAS NOT RETURNED YET.
[2022-05-27 20:00] VITALS: BP 149/101
[2022-05-27] MEDS: LORAZEPAM 1 MG TABLET FOR AGITATION PO PRN (20:45)
[2022-05-28] MEDS: DEXILANT 60 MG PO SCH (07:43)
[2022-05-28 08:45] VITALS: BP 138/97
[2022-05-28] MEDS: INVEST MED CVL-231-2002 PO SCH (10:07)
[2022-05-28 16:00] VITALS: BP 137/75
--- NOTE | 2022-05-28 19:20 | NUR ---
RN NOTE RECEIVED PATIENT IN HIS ROOM RESTING COMFORTABLY. ALERT AND ORIENTED X3-4. ABLE TO MAKE NEEDS KNOWN. NO S/SX OF ACUTE DISTRESS NOTED. PATIENT REMAINS ANXIOUS, BLUNTED AFFECT, PARANOID, TALKING TO SELF, GUARDED. PATIENT IS ON INVESTIGATIONAL MEDS WITH NO ADVERSE REACTION NOTED. DENIES SI/HI/AVH AT THIS TIME. SAFETY PRECAUTIONS MAINTAINED. WILL CONTINUE TO MONITOR Q15MIN ROUNDS FOR SAFETY AND BEHAVIOR.
[2022-05-28 20:28] VITALS: BP 143/96
[2022-05-29] MEDS: DEXILANT 60 MG PO SCH (07:43)
[2022-05-29 08:00] VITALS: BP 146/86
[2022-05-29] MEDS: INVEST MED CVL-231-2002 PO SCH (09:59)
[2022-05-29 16:00] VITALS: BP 140/88
[2022-05-29] MEDS: LORAZEPAM 1 MG TABLET FOR AGITATION PO PRN (19:05)
--- NOTE | 2022-05-29 19:05 | NUR ---
NURSE NOTE: PT REQUESTED ATIVAN AT THIS TIME. STATED HE'S FEELING ANXIOUS. ATIVAN ADMIN ORDERED. PT ESTEPHANIE WELL. WILL CONT TO MONITOR.
[2022-05-29 19:38] VITALS: BP 148/91
--- NOTE | 2022-05-29 21:16 | NUR ---
RN note: Patient in bed awake,noted mumbling ,talking to self ,preoccupied to his own thought process.No s/s of acute distress noted.Will continue to monitor q15 min rounds for safety.
[2022-05-30 08:00] VITALS: BP 136/64
--- NOTE | 2022-05-30 08:00 | NUR ---
DO FLORES RN NOTES: RECEIVED PT IN BED ASLEEP, EASILY AROUSED WITH STIMULI. NO SOB OR CARDIAC DISTRESS NOTED, DENIES PAIN AT THIS TIME, NO EPISODES OF BEHAVIORAL CHANGES. RESIDENT IS AMBULATORY, PT IS PLEASANT AND COMPLIANT TO SCHEDULED MEDS. WILL MONITOR ACCORDINGLY. SAFETY MEASURES MAINTAINED:BED LOCKED AND IN LOWEST POSITION, SIDE RAILS UP X 2. CALL LIGHT IN EASY REACH.
[2022-05-30] MEDS: DEXILANT 60 MG PO SCH (08:19)
[2022-05-30] MEDS: INVEST MED CVL-231-2002 PO SCH (10:05)
[2022-05-30] MEDS ORDERED: LORAZEPAM 1 MG TABLET FOR AGITATION PO PRN (13:00)
[2022-05-30] MEDS ORDERED: ZOLPIDEM TARTRATE 10 MG TABLET PO PRN (13:00)
[2022-05-30 20:10] VITALS: BP 143/82
--- NOTE | 2022-05-31 06:02 | NUR ---
RN Note: Patient awake,noted talking ,mumbling to self ,talking to [place], labile mood, preoccupied to his own thought ,during the night.Offered sleeping pill but refused.No s/s of acute distress noted.Will continue to monitor q15 min rounds for safety.
[2022-05-31] MEDS: DEXILANT 60 MG PO SCH (07:58)
[2022-05-31 08:00] VITALS: BP 140/90
[2022-05-31] MEDS: INVEST MED CVL-231-2002 PO SCH (10:04)
[2022-05-31 16:00] VITALS: BP 131/73
[2022-05-31 20:08] VITALS: BP 153/94
--- NOTE | 2022-06-01 02:24 | NUR ---
RN Note: Patient noted asleep,no s/s of acute distress noted.Will continue to monitor q15 min rounds for safety.
[2022-06-01] MEDS: DEXILANT 60 MG PO SCH (07:46)
[2022-06-01 08:00] VITALS: BP 130/74
[2022-06-01] MEDS: INVEST MED CVL-231-2002 PO SCH (10:13)
--- NOTE | 2022-06-01 10:17 | NUR ---
RN Notes: Received pt. awake in bed, responsive to staffs, no distress and no agitation noted. Ate 100% for breakfast and compliant on meds including the investigational med. Needs attended and will continue to monitor for safety.
[2022-06-01 16:00] VITALS: BP 131/92
[2022-06-01 20:46] VITALS: BP 132/98
[2022-06-02] MEDS: DEXILANT 60 MG PO SCH (07:40)
[2022-06-02 08:00] VITALS: BP 137/94
--- NOTE | 2022-06-02 08:49 | NUR ---
Dr. Baumann gave an order to D/C pt. today and to follow up with the psychiatrist. Pt. without distress, denies suicidal and homicidal. Discharge papers ready and belongings ready.
[2022-06-02] MEDS: INVEST MED CVL-231-2002 PO SCH (09:55)
--- NOTE | 2022-06-02 10:40 | NUR ---
Pt. left the unit with belongings and was picked up by the staff of Dr. Baumann ([facility]). Discharge papers given and instructed to make a follow up with psychiatrist. Pt. left the unit without distress and no agitation noted.
== END 2022-06-02 10:40 | disposition home or self-care (01) | DRG 951 ==
LOC: MED 15:07 → GPS 04-27 20:33
PROVIDERS: ADMIT Psychiatry & Neurology Psychiatry; ATTEND Psychiatry & Neurology Psychiatry
DX: Z00.6 Encounter for examination for normal comparison and control in clinical research program (principal); F20.0 Paranoid schizophrenia; F41.9 Anxiety disorder, unspecified; F32.A Depression, unspecified; Z79.899 Other long term (current) drug therapy; J45.909 Unspecified asthma, uncomplicated; K21.9 Gastro-esophageal reflux disease without esophagitis; Z88.8 Allergy status to other drugs, medicaments and biological substances; G47.00 Insomnia, unspecified
CPT/HCPCS: 87081-TC; G0378